=== PATIENT | male | born 1950 | race Caucasian/White ===

== ENCOUNTER → 2016-08-10 | Outpatient (CLI) | payer MEDICARE, OTHER ==
[2016-08-10 17:12] LABS: ALANINE AMINOTRANSFERASE 38 U/L (21-72); ALBUMIN 4.4 g/dL (3.5-5.0); ALKALINE PHOSPHATASE 85 U/L (38-126); ASPARTATE AMINO TRANSFERASE 33 U/L (17-59); BILIRUBIN,DIRECT 0.4 mg/dL (0.0-0.4); BILIRUBIN,TOTAL 1.2 mg/dL (0.2-1.3); CHOLESTEROL 165.29 mg/dL (0-200); Direct HDL 93 mg/dL (>40); TOTAL PROTEIN 7.4 g/dL (6.3-8.2); TRIGLYCERIDES 66 mg/dL (<150)
[2016-08-10 17:23] LABS: DIRECT LDL 54 mg/dL (<100)
== END ==
LOC: OD 15:06
PROVIDERS: ATTEND Specialist
DX: E78.5 Hyperlipidemia, unspecified (principal); I12.9 Hypertensive chronic kidney disease with stage 1 through stage 4 chronic kidney disease, or unspecified chronic kidney disease; N18.9 Chronic kidney disease, unspecified; I48.0 Paroxysmal atrial fibrillation; R01.1 Cardiac murmur, unspecified; Z79.899 Other long term (current) drug therapy
CPT/HCPCS: 36415; 80061; 80076

== ENCOUNTER 2016-09-09 07:23 | Day surgery (SDC) | payer MEDICARE, OTHER ==
--- NOTE | 2016-09-08 13:31 | HISTORY AND PHYSICAL E ---
History and Physical NAME: KAUSHIK ACE : 1950 AGE: 66Y ADMITTED: 09/09/2016 ROOM: REASON FOR ADMISSION: Colonoscopy. DIAGNOSIS: History of colon polyps. REVIEW OF SYSTEMS: Patient has a history of enlarged prostate, history of diverticulosis and diverticulitis. PRIMARY: Dr. Andres Nunez MEDICATIONS: 1. Uloric 40 mg. 2. Prilosec. 3. Fosamax. 4. Diovan. 5. Norvasc. 6. Norpace. 7. Lipitor. 8. Lasix. 9. Flomax. PHYSICAL EXAMINATION: VITAL SIGNS: Blood pressure is 130/70, pulse 70, respirations 18, temp 98. HEENT: Normal. NECK: Supple. LUNGS: Clear. ABDOMEN: Soft. NEUROLOGIC: Negative. LABORATORY DATA: Prostatic specific antigen 2.1. HISTORY: Patient is admitted at this time regarding colonoscopy. I saw the patient in 2014. He had colonoscopy showing colorectal polyps. They was a sessile 1-mm polyp in transverse colon resected and another sessile polyp in proximal ascending 0.5 cm, injected and resected. Again, the patient did have diverticulosis in descending colon, sessile polyp 1 cm injected and resected, a sessile polyp difficult to be resected, injected and resected. We were able to resect it with no difficulty and no sign of it bleeding. These polyps were adenomas. SOCIAL HISTORY: . Does not smoke. Drinks rarely. PAST MEDICAL HISTORY: Patient did have upper scope, reflux. Patient has a history of polyps. Patient was seen on October 14. He takes Diovan for hypertension. CONCLUSIONS: Colon exam. PLAN: Colonoscopy for history of polyps, admit on 09/09/2016. DICTATING PHYSICIAN: ALONA ADAM M.D. [id number] PHY#: [id number] ID: [id number] JOB#: [id number] ACCT: [id number] cc:ALONA ADAM M.D. >
[2016-09-09] MEDS ORDERED: ONDANSETRON HCL INJ/PF 4 MG/2 ML SDV ONE (07:41)
[2016-09-09] MEDS ORDERED: LIDOCAINE 2% JELLY 30 ML TUBE ONE (07:41)
[2016-09-09] MEDS ORDERED: NALOXONE HCL INJ/PF 0.4 MG/1 ML SDV ONE (07:42)
[2016-09-09] MEDS ORDERED: GLYCOPYRROLATE INJ 0.4 MG/2 ML VIAL ONE (07:42)
[2016-09-09] MEDS ORDERED: EPINEPHRINE INJ 1 MG/10 ML DISP.SYRIN ONE (07:43)
[2016-09-09] MEDS ORDERED: GLUCAGON,HUMAN RECOMB 1 MG INJ ONE (07:43)
[2016-09-09] MEDS ORDERED: FLUMAZENIL INJ 0.5 MG/5 ML VIAL IV ONE (07:43)
[2016-09-09] MEDS: MIDAZOLAM 2 MG/2 ML INJ ONE ×2 (08:10→08:18)
[2016-09-09] MEDS: FENTANYL CITRATE INJ/PF 100 MCG/2 ML AMPUL ONE ×2 (08:14→08:25)
[2016-09-09 09:36] VITALS: BP 112/69
--- NOTE | 2016-09-09 10:08 | OPERATIVE REPORT E ---
Operative Report NAME: KAUSHIK ACE : 1950 AGE: 66Y DATE OF SURGERY: 09/09/2016 ROOM: PREOPERATIVE DIAGNOSIS: Colon screening. POSTOPERATIVE DIAGNOSES: 1. A 3 mm descending colon polyp. Biopsy obtained. 2. Severe diverticulosis sigmoid descending colon. 3. Mild external hemorrhoid. PROCEDURE: Colonoscopy. SURGEON: ALONA ADAM M.D. ANESTHESIA: Versed 2, fentanyl 100, and . TISSUE REMOVED OR ALTERED: Biopsy descending colon polyp. Biopsy almost removed the polyp, 3 mm in size. Benign looking. Pending biopsy. PROCEDURE: Rectal exam: Enlarged prostate. Mild external hemorrhoids. Sigmoid descending colon diverticulosis, severe. Descending colon: A 3 mm polyp removed by biopsy. Transverse colon normal. Ascending cecum normal. Scope withdrawn from cecum, ascending, transverse, descending, sigmoid all the way to the rectum. CONCLUSION: 1. Severe diverticulosis sigmoid descending colon. 2. Small 3 mm polyp removed by biopsy. PLAN: Hold aspirin and nonsteroidal 3 days. Soft low residue diet 3 days. Awaiting biopsy results. Baseline CBC. DICTATING PHYSICIAN: ALONA ADAM M.D. [id number] PHY#: [id number] ID: [id number] JOB#: [id number] ACCT: [id number] cc:Adryan BALL M.D. >
--- NOTE | 2016-09-09 10:09 | DISCHARGE SUMMARY E ---
Discharge Summary NAME: KAUSHIK ACE : 1950 AGE: 66Y ADMITTED: 09/09/2016 DISCHARGED: 09/09/2016 FINAL DIAGNOSES: 1. A 3-mm polyp at descending colon. 2. Sigmoid diverticulosis. HISTORY: This 66-year-old male presented for colon screening. Today's colon shows benign-looking polyp, 3 mm, descending colon. DISCHARGE PLAN: Baseline CBC, soft low-residue diet for 5 days, hold aspirin for 3 days. DICTATING PHYSICIAN: ALONA ADAM M.D. [id number] PHY#: [id number] ID: [id number] JOB#: [id number] ACCT: [id number] cc:Adryan BALL M.D. >
[2016-09-09 10:19] LABS: ABSOLUTE BASOPHILS # (AUTO) 0.1 10^3/uL (0.0-0.2); ABSOLUTE EOSINOPHILS # (AUTO) 0.2 10^3/uL (0.0-0.6); ABSOLUTE LYMPHOCYTES (AUTO) 1.1 10^3/uL (0.5-4.7); ABSOLUTE MONOCYTES (AUTO) 0.3 10^3/uL (0.1-1.4); ABSOLUTE NEUT (AUTO) 4.5 10^3/uL (1.7-8.2); BASOPHILS % (AUTO) 0.8 % (0-2); EOSINOPHILS % (AUTO) 2.8 % (0-6); HEMATOCRIT 39.5 % (37.9-51.0); HEMOGLOBIN 13.3 g/dL (13.5-17.0); HGB HCT DIFFERENCE 0.4; LYMPHOCYTES % (AUTO) 17.6 % (13-45); MEAN CORPUSCULAR HEMOGLOBIN 33.8 pg (27.0-33.4); MEAN CORPUSCULAR HGB CONC 33.7 g/dL (32.0-36.0); MEAN CORPUSCULAR VOLUME 100 fl (80-97); MONOCYTES % (AUTO) 5.6 % (3-13); RED BLOOD COUNT 3.94 10^6/uL (4.35-5.55); RED CELL DISTRIBUTION WIDTH 13.8 % (11.5-14.0); SEGMENTED NEUTROPHILS % (AUTO) 73.2 % (42-78); WHITE BLOOD COUNT 6.1 10^3/uL (4.0-10.5)
== END 2016-09-09 09:57 | disposition home or self-care (01) ==
LOC: END 07:23
PROVIDERS: ATTEND Specialist
PROC: 0DBN8ZX Excision of Sigmoid Colon, Via Natural or Artificial Opening Endoscopic, Diagnostic (ICD-10-PCS; principal; 2016-09-09 08:00)
DX: Z12.11 Encounter for screening for malignant neoplasm of colon (principal); K57.30 Diverticulosis of large intestine without perforation or abscess without bleeding; K64.4 Residual hemorrhoidal skin tags; I48.91 Unspecified atrial fibrillation; I10 Essential (primary) hypertension; K21.9 Gastro-esophageal reflux disease without esophagitis; Z88.8 Allergy status to other drugs, medicaments and biological substances; Z79.899 Other long term (current) drug therapy; Z88.5 Allergy status to narcotic agent
CPT/HCPCS: 45380; 36415; 85025; 88305 ×2; J2250; J3010; J1610; J2405; J0171; J2310; J3490

== ENCOUNTER → 2016-11-18 | Outpatient (CLI) | payer MEDICARE, OTHER ==
[2016-11-18 13:15] LABS: ANION GAP 12 (5-19); BLOOD UREA NITROGEN 21 mg/dL (7-20); CALCIUM 9.4 mg/dL (8.4-10.2); CARBON DIOXIDE 29 mmol/L (22-30); CHLORIDE 105 mmol/L (98-107); CREATININE RESULT 1.11 mg/dL (0.52-1.25); GLUCOSE 88 mg/dL (75-110); POTASSIUM 3.9 mmol/L (3.6-5.0); SODIUM 145.5 mmol/L (137-145)
== END ==
LOC: OD 11:51
PROVIDERS: ATTEND Internal Medicine
DX: I48.0 Paroxysmal atrial fibrillation (principal); R01.1 Cardiac murmur, unspecified; E78.5 Hyperlipidemia, unspecified; I12.9 Hypertensive chronic kidney disease with stage 1 through stage 4 chronic kidney disease, or unspecified chronic kidney disease; N18.9 Chronic kidney disease, unspecified; Z79.899 Other long term (current) drug therapy
CPT/HCPCS: 36415; 80048

== ENCOUNTER → 2017-03-12 | Outpatient (CLI) | payer MEDICARE, OTHER ==
[2017-03-12 12:16] LABS: ABSOLUTE BASOPHILS # (AUTO) 0.1 10^3/uL (0.0-0.2); ABSOLUTE EOSINOPHILS # (AUTO) 0.2 10^3/uL (0.0-0.6); ABSOLUTE LYMPHOCYTES (AUTO) 1.2 10^3/uL (0.5-4.7); ABSOLUTE MONOCYTES (AUTO) 0.3 10^3/uL (0.1-1.4); ABSOLUTE NEUT (AUTO) 2.9 10^3/uL (1.7-8.2); BASOPHILS % (AUTO) 1.1 % (0-2); EOSINOPHILS % (AUTO) 4.1 % (0-6); HEMATOCRIT 41.9 % (37.9-51.0); HEMOGLOBIN 14.5 g/dL (13.5-17.0); LYMPHOCYTES % (AUTO) 25.9 % (13-45); MEAN CORPUSCULAR HEMOGLOBIN 34.3 pg (27.0-33.4); MEAN CORPUSCULAR HGB CONC 34.5 g/dL (32.0-36.0); MEAN CORPUSCULAR VOLUME 99 fl (80-97); MONOCYTES % (AUTO) 6.5 % (3-13); PLATELET COUNT 157 10^3/uL (150-450); RED BLOOD COUNT 4.21 10^6/uL (4.35-5.55); RED CELL DISTRIBUTION WIDTH 13.7 % (11.5-14.0); SEGMENTED NEUTROPHILS % (AUTO) 62.4 % (42-78); TOTAL CELLS COUNTED % (AUTO) 100 %; WHITE BLOOD COUNT 4.7 10^3/uL (4.0-10.5)
[2017-03-12 12:40] LABS: ANION GAP 11 (5-19); BLOOD UREA NITROGEN 16 mg/dL (7-20); CARBON DIOXIDE 29 mmol/L (22-30); CHLORIDE 104 mmol/L (98-107); GLUCOSE 75 mg/dL (75-110); POTASSIUM 4.1 mmol/L (3.6-5.0)
[2017-03-15 09:01] LABS: CREATININE 1.2 mg/dL (0.52-1.25)
[2017-03-15 09:02] LABS: 24 HOUR URINE PROTEIN RESULT 832 mg/day (42-225); URINE PROTEIN 14.1 mg/dL (<12)
[2017-03-15 09:03] LABS: URINE CREATININE 19.9 mg/dL (22-328)
== END ==
LOC: LAB 11:57
PROVIDERS: ATTEND Internal Medicine Nephrology
DX: N18.2 Chronic kidney disease, stage 2 (mild) (principal); N28.1 Cyst of kidney, acquired
CPT/HCPCS: 36415; 80048; 82575; 84156; 85025

== ENCOUNTER → 2017-06-08 | Outpatient (CLI) | payer MEDICARE, OTHER ==
[2017-06-08 12:51] LABS: ALANINE AMINOTRANSFERASE 41 U/L (21-72); ALBUMIN 4.1 g/dL (3.5-5.0); ALKALINE PHOSPHATASE 78 U/L (38-126); ASPARTATE AMINO TRANSFERASE 34 U/L (17-59); BILIRUBIN,DIRECT 0.2 mg/dL (0.0-0.4); BILIRUBIN,TOTAL 0.8 mg/dL (0.2-1.3); CHOLESTEROL 152.32 mg/dL (0-200); TOTAL PROTEIN 6.4 g/dL (6.3-8.2); TRIGLYCERIDES 71 mg/dL (<150)
[2017-06-08 13:02] LABS: DIRECT LDL 59 mg/dL (<100)
== END ==
LOC: OD 11:16
PROVIDERS: ATTEND Specialist
DX: I48.0 Paroxysmal atrial fibrillation (principal); R01.1 Cardiac murmur, unspecified; I12.9 Hypertensive chronic kidney disease with stage 1 through stage 4 chronic kidney disease, or unspecified chronic kidney disease; N18.9 Chronic kidney disease, unspecified; E78.5 Hyperlipidemia, unspecified; Z79.899 Other long term (current) drug therapy
CPT/HCPCS: 36415; 80061; 80076

== ENCOUNTER → 2017-09-10 | Outpatient (CLI) | payer MEDICARE, OTHER ==
[2017-09-10 15:56] LABS: ANION GAP 12 (5-19); BLOOD UREA NITROGEN 27 mg/dL (7-20); CALCIUM 9.4 mg/dL (8.4-10.2); CARBON DIOXIDE 28 mmol/L (22-30); CHLORIDE 103 mmol/L (98-107); GLUCOSE 97 mg/dL (75-110); POTASSIUM 3.9 mmol/L (3.6-5.0); SODIUM 142.6 mmol/L (137-145)
[2017-09-11 12:38] LABS: CREATININE URINE 14.4 mg/dL (Not Estab.)
[2017-09-12 06:15] LABS: MICROALBUMIN URINE <3.0 ug/mL (Not Estab.)
== END ==
LOC: OD 15:01
PROVIDERS: ATTEND Internal Medicine Nephrology
DX: N18.2 Chronic kidney disease, stage 2 (mild) (principal); R80.9 Proteinuria, unspecified
CPT/HCPCS: 36415; 80048; 82043; 82570

== ENCOUNTER → 2018-01-10 | Outpatient (CLI) | payer MEDICARE, OTHER ==
[2018-01-10 14:39] LABS: ALANINE AMINOTRANSFERASE 34 U/L (21-72); ALKALINE PHOSPHATASE 84 U/L (38-126); ASPARTATE AMINO TRANSFERASE 39 U/L (17-59); BILIRUBIN,DIRECT 0.3 mg/dL (0.0-0.4); CHOLESTEROL 138.15 mg/dL (0-200); TOTAL PROTEIN 6.4 g/dL (6.3-8.2); TRIGLYCERIDES 61 mg/dL (<150)
[2018-01-10 14:50] LABS: DIRECT LDL 62 mg/dL (<100)
== END ==
LOC: OD 13:38
PROVIDERS: ATTEND Specialist
DX: I12.9 Hypertensive chronic kidney disease with stage 1 through stage 4 chronic kidney disease, or unspecified chronic kidney disease (principal); N18.9 Chronic kidney disease, unspecified; I48.0 Paroxysmal atrial fibrillation; R01.1 Cardiac murmur, unspecified; E78.5 Hyperlipidemia, unspecified; Z79.899 Other long term (current) drug therapy
CPT/HCPCS: 36415; 80061; 80076

== ENCOUNTER → 2018-03-21 | Outpatient (CLI) | payer MEDICARE, OTHER ==
[2018-03-21 08:29] LABS: ANION GAP 6 (5-19); BLOOD UREA NITROGEN 22 mg/dL (7-20); CALCIUM 9.5 mg/dL (8.4-10.2); CARBON DIOXIDE 30 mmol/L (22-30); CHLORIDE 104 mmol/L (98-107); GLUCOSE 102 mg/dL (75-110); POTASSIUM 3.8 mmol/L (3.6-5.0); SODIUM 140.2 mmol/L (137-145)
[2018-03-21 11:01] LABS: APPEARANCE,URINE CLEAR; BILIRUBIN,URINE NEGATIVE (NEGATIVE); COLOR,URINE YELLOW; GLUCOSE, URINE NEGATIVE (NEGATIVE); KETONES,URINE NEGATIVE (NEGATIVE); LEUKOCYTE ESTERASE,URINE NEGATIVE (NEGATIVE); NITRITE,URINE NEGATIVE (NEGATIVE); PROTEIN,URINE NEGATIVE (NEGATIVE); URINE SPECIFIC GRAVITY 1.014; UROBILINOGEN,URINE NEGATIVE mg/dL (<2.0)
[2018-03-22 12:38] LABS: CREATININE URINE 161.4 mg/dL (Not Estab.); MICROALBUMIN URINE 7.8 ug/mL (Not Estab.)
== END ==
LOC: OD 07:12
PROVIDERS: ATTEND Internal Medicine Nephrology
DX: I12.9 Hypertensive chronic kidney disease with stage 1 through stage 4 chronic kidney disease, or unspecified chronic kidney disease (principal); N18.2 Chronic kidney disease, stage 2 (mild)
CPT/HCPCS: 36415; 80048; 81001; 82043; 82570

== ENCOUNTER 2018-11-23 06:18 | Observation (INO) | payer MEDICARE, OTHER ==
[2018-11-23] MEDS ORDERED: ONDANSETRON HCL INJ/PF 4 MG/2 ML SDV IV ONE (07:53)
[2018-11-23] MEDS ORDERED: MORPHINE SULFATE 10 MG/ML INJ IV ONE ×2 (07:53→09:46)
--- NOTE | 2018-11-23 08:06 | ER Document Report ---
ED General <IZAIAH MARIE - Last Filed: 11/23/18 12:14> - General TRAVEL OUTSIDE OF THE [place] IN LAST 30 DAYS: No <HERMINIO ARELLANO - Last Filed: 11/25/18 15:25> - General Chief Complaint: Groin Pain Stated Complaint: PAIN IN GROIN Time Seen by Provider: 11/23/18 07:40 - HPI Notes: Patient is a 68-year-old male who presents the emergency department for evaluation of pain in his right lower abdomen/inguinal area. He states he was walking on a treadmill yesterday. He walks 5 days a week. He states he left, got into his car, and had onset of pain at that time. It was not during activity. He saw his primary care doctor, who diagnosed him with an inguinal strain. He was started on Ultram which he states is not helping at all. He denies any fevers or chills. He said some nausea but no emesis. Pain is not changed by food. He did have a normal bowel movement yesterday after pain started. No urinary symptoms. He describes his pain is sharp and stabbing, worsened by position and movement. He currently rates it a 9 out of 10. (HERMINIO ARELLANO) - Related Data Allergies/Adverse Reactions: prednisone [Prednisone] Allergy (Intermediate, Verified 09/09/16 07:38) upsets heart rate(put into a-fib) codeine [Codeine] Adverse Reaction (Mild, Verified 09/09/16 07:38) n/v Past Medical History - General Information source: Patient - Social History Smoking Status: Never Smoker Chew tobacco use (# tins/day): No Frequency of alcohol use: None Drug Abuse: None Family History: Reviewed & Not Pertinent Patient has suicidal ideation: No Patient has homicidal ideation: No - Past Medical History Cardiac Medical History: Reports: Hx Atrial Fibrillation, Hx Hypercholesterolemia, Hx Hypertension Denies: Hx Coronary Artery Disease, Hx Heart Attack Pulmonary Medical History: Denies: Hx Asthma, Hx Bronchitis, Hx COPD, Hx Pneumonia Neurological Medical History: Denies: Hx Cerebrovascular Accident, Hx Seizures GI Medical History: Reports: Hx Gastroesophageal Reflux Disease Musculoskeletal Medical History: Denies Hx Arthritis - Immunizations Hx Diphtheria, Pertussis, Tetanus Vaccination: No Hx Pneumococcal Vaccination: 03/01/12 <HERMINIO ARELLANO - Last Filed: 11/25/18 15:25> Review of Systems - Review of Systems Constitutional: No symptoms reported EENT: No symptoms reported Cardiovascular: No symptoms reported Respiratory: No symptoms reported Gastrointestinal: See HPI Genitourinary: No symptoms reported Musculoskeletal: See HPI Skin: No symptoms reported Neurological/Psychological: No symptoms reported <HERMINIO ARELLANO - Last Filed: 11/25/18 15:25> Physical Exam <HERMINIO ARELLANO Yen - Last Filed: 11/25/18 15:25> - Vital signs Vitals: Temp Pulse Resp BP Pulse Ox 98.7 F 80 24 H 127/83 H 98 11/23/18 06:25 11/23/18 06:25 11/23/18 06:25 11/23/18 06:25 11/23/18 06:25 - Notes Notes: Is a 68-year-old gentleman who appears his stated age in a moderate amount of distress. He is curled up on his right side. It takes him yearly four full minutes to have him turn and lie on his back to complete my examination. Vital signs reviewed, please refer to chart. Head is normocephalic, atraumatic. Pupils equal round, reactive to light. Neck is supple without meningismus. Heart is regular rate and rhythm. Lungs are clear to auscultation bilaterally. Examination of the abdomen yields erythema from heating pad noted on the lower abdomen. He is markedly tender with voluntary guarding to the entire right side of the abdomen. No tenderness or guarding on the left side of the abdomen. Negative heeltap. Normoactive bowel sounds. Extremities without cyanosis, clubbing. Posterior calves are nontender. Peripheral pulses are equal. Skin is warm and dry. Patient is awake, alert, neurological exam is nonfocal. (HERMINIO ARELLANO) Course - Laboratory Result Diagrams: 11/23/18 08:22 11/23/18 08:22 <IZAIAH MARIE - Last Filed: 11/23/18 12:14> - Laboratory Result Diagrams: 11/25/18 11:52 11/23/18 08:22 <HERMINIO ARELLANO - Last Filed: 11/25/18 15:25> - Re-evaluation Re-evalutation: 11/23/18 12:14 I assumed care of the patient at [address] scan returns showing signs of appendicitis. I consulted the general surgeon who has seen the patient and is going to take the patient to the operating room for treatment of appendicitis. (IZAIAH MARIE) 11/23/18 11:04 Emerge department for evaluation. He has pain in his right inguinal and lower abdominal region that seems to be more affected by movement than anything else. He is pain-free after morphine and Toradol. CT scan of the abdomen and pelvis is pending, ordered simply because of the level of tenderness, but serial abdominal exams failed to reveal this level of tenderness. I do not have a significant concern for intra-abdominal etiology at this time. I will then send the patient home with prescription strength anti-inflammatories as well as stronger pain medication. He is to follow-up with his primary care physician in 1 to 2 days, return to the ED with worsening or new concerning symptoms. 11/25/18 15:24 I was notified later that the CT scan showed appendicitis, as followed up by Dr. Marie. He notified surgery, and the patient was admitted for appendectomy. Prescriptions not given, patient admitted. (HERMINIO ARELLANO) - Vital Signs Vital signs: Temp Pulse Resp BP Pulse Ox 98.2 F 62 16 136/71 H 97 11/25/18 12:21 11/25/18 12:21 11/25/18 12:21 11/25/18 12:21 11/25/18 12:21 - Laboratory Laboratory results interpreted by me: 11/23/18 11/23/18 11/23/18 08:22 08:22 09:48 RBC 4.19 L MCV 98 H MCH 34.1 H Plt Count 124 L Lymph % (Auto) 5.2 L Absolute Lymphs (auto) 0.3 L Seg Neutrophils % 89.1 H Sodium 136.6 L Total Bilirubin 1.8 H Urine Ketones 20 H Discharge - Discharge Admitting Provider[facility] Unit Admitted: Surgical Floor <IZAIAH MARIE - Last Filed: 11/23/18 12:14> <HERMINIO ARELLANO - Last Filed: 11/25/18 15:25> - Discharge Clinical Impression: Appendicitis Qualifiers: Appendicitis type: acute appendicitis Acute appendicitis type: with localized peritonitis Appendicitis gangrene presence: without gangrene Appendicitis perfor ation presence: without perforation Appendicitis abscess presence: without abscess Qualified Code(s): K35.30 - Acute appendicitis with localized peritonitis, without perforation or gangrene Condition: Stable Disposition: ADMITTED INPATIENT
[2018-11-23] MEDS ORDERED: NORMAL SALINE 1000 ML 1,000 ML IV ONE (08:21)
[2018-11-23 08:51] LABS: ABSOLUTE LYMPHOCYTES (AUTO) 0.3 10^3/uL (0.5-4.7); ABSOLUTE MONOCYTES (AUTO) 0.3 10^3/uL (0.1-1.4); ABSOLUTE NEUT (AUTO) 5.2 10^3/uL (1.7-8.2); BASOPHILS % (AUTO) 0.1 % (0-2); EOSINOPHILS % (AUTO) 0.2 % (0-6); HEMATOCRIT 40.9 % (37.9-51.0); HEMOGLOBIN 14.3 g/dL (13.5-17.0); LYMPHOCYTES % (AUTO) 5.2 % (13-45); MEAN CORPUSCULAR HEMOGLOBIN 34.1 pg (27.0-33.4); MEAN CORPUSCULAR HGB CONC 34.9 g/dL (32.0-36.0); MEAN CORPUSCULAR VOLUME 98 fl (80-97); MONOCYTES % (AUTO) 5.4 % (3-13); PLATELET COUNT 124 10^3/uL (150-450); RED BLOOD COUNT 4.19 10^6/uL (4.35-5.55); RED CELL DISTRIBUTION WIDTH 13.3 % (11.5-14.0); SEGMENTED NEUTROPHILS % (AUTO) 89.1 % (42-78); TOTAL CELLS COUNTED % (AUTO) 100 %; WHITE BLOOD COUNT 5.8 10^3/uL (4.0-10.5)
[2018-11-23 08:53] LABS: ALBUMIN 4.1 g/dL (3.5-5.0); ALKALINE PHOSPHATASE 69 U/L (38-126); ANION GAP 9 (5-19); ASPARTATE AMINO TRANSFERASE 36 U/L (17-59); BILIRUBIN,DIRECT 0.2 mg/dL (0.0-0.4); BILIRUBIN,TOTAL 1.8 mg/dL (0.2-1.3); BLOOD UREA NITROGEN 19 mg/dL (7-20); CALCIUM 9.5 mg/dL (8.4-10.2); CARBON DIOXIDE 27 mmol/L (22-30); CHLORIDE 101 mmol/L (98-107); GLUCOSE 110 mg/dL (75-110); POTASSIUM 4.1 mmol/L (3.6-5.0); TOTAL PROTEIN 6.9 g/dL (6.3-8.2)
[2018-11-23] MEDS ORDERED: SUCCINYLCHOLINE CHLORIDE INJ 200 MG/10 ML VIAL ONE (09:17)
[2018-11-23] MEDS ORDERED: KETOROLAC TROMETHAMINE INJ/PF 30 MG/1 ML SDV IV ONE (09:46)
[2018-11-23 10:08] LABS: APPEARANCE,URINE CLEAR; BILIRUBIN,URINE NEGATIVE (NEGATIVE); COLOR,URINE YELLOW; GLUCOSE, URINE NEGATIVE (NEGATIVE); KETONES,URINE 20 mg/dL (NEGATIVE); LEUKOCYTE ESTERASE,URINE NEGATIVE (NEGATIVE); NITRITE,URINE NEGATIVE (NEGATIVE); PROTEIN,URINE NEGATIVE (NEGATIVE); URINE SPECIFIC GRAVITY 1.014; UROBILINOGEN,URINE NEGATIVE mg/dL (<2.0)
--- NOTE | 2018-11-23 11:49 | RADIOLOGY REPORT (SQ) ---
EXAM DESCRIPTION: CT ABD/PELVIS WITH IV ONLY COMPLETED DATE/TIME: 11/23/2018 10:46 am REASON FOR STUDY: Right lower abdominal pain COMPARISON: None. TECHNIQUE: CT scan of the abdomen and pelvis performed using helical scanning technique with dynamic intravenous contrast injection. No oral contrast. Images reviewed with lung, soft tissue, and bone windows. Reconstructed coronal and sagittal MPR images reviewed. Delayed images for evaluation of the urinary system also acquired. All images stored on PACS. All CT scanners at this facility use dose modulation, iterative reconstruction, and/or weight based d osing when appropriate to reduce radiation dose to as low as reasonably achievable (ALARA). [facility]: Dose Right [facility]: CareDose [facility]: Dose Right [facility]: Teradose 4D [facility]: [employer] CONTRAST TYPE AND DOSE: contrast/concentration: Isovue 350.00 mg/ml; Total Contrast Delivered: 100.0 ml; Total Saline Delivered: 72.0 ml RENAL FUNCTION: Creatinine 1.16 RADIATION DOSE: CT Rad equipment meets quality standard of care and radiation dose reduction techniq ues were employed. CTDIvol: 17.4 - 19.4 mGy. DLP: 1969 mGy-cm.. LIMITATIONS: None. FINDINGS: LOWER CHEST: Mild irregular consolidation within the right lung base. Scattered coronary atherosclerosis. LIVER: Hepatic steatosis. No focal lesions. SPLEEN: Normal size. No focal lesions. PANCREAS: Fatty atrophy of the pancreas. Focal solid appearing mass within the pancreatic tail measu ring approximately 3.0 x 2.0 cm. No peripancreatic inflammation. No ductal dilation. GALLBLADDER: No identified stones by CT criteria. No inflammatory changes to suggest cholecystitis. ADRENAL GLANDS: No significant masses or asymmetry. RIGHT KIDNEY AND URETER: Multiple renal cyst. No definite solid masses. No significant calcificati ons. No hydronephrosis or hydroureter. LEFT KIDNEY AND URETER: No solid masses. No significant calcifications. No hydronephrosis or hydr oureter. AORTA AND VESSELS: No aneurysm. No dissection. Renal arteries, SMA, celiac without stenosis. RETROPERITONEUM: No retroperitoneal adenopathy, hemorrhage or masses. BOWEL AND PERITONEAL CAVITY: No evidence of intestinal obstruction. No focal bowel wall thickening. Few scattered colonic diverticula. There is small volume fluid and stranding about the cecum. APPENDIX: Dilation of the proximal appendix measuring up to 10 mm. The appendiceal tip is nondilated . No appendicolith. Mild stranding about the appendix and pericecal free fluid. No focal drainable collection. PELVIS: No mass. No free fluid. Normal bladder. ABDOMINAL WALL: Left fat containing inguinal hernia. BONES: No acute bony abnormality. No suspicious osseous lesions. IMPRESSION: 1. Dilated proximal appendix measuring up to 10 mm with periappendiceal stranding sugge stive of appendicitis. Small volume pericecal fluid without focal drainable abscess. 2. 3.0 x 2.0 cm solid pancreatic tail mass. 3. Patchy with right basilar consolidation possibly atelectasis or infection. 4. . Hepatic steatosis. Pertinent positive or negative findings of the imaging study reported as a CRITICAL EXAM to Frank at11:37 on 11/23/2018. TECHNICAL DOCUMENTATION: JOB ID: [id number] Quality ID # [id number]: Final reports with documentation of one or more dose reduction techniques (e.g., Au tomated exposure control, adjustment of the mA and/or kV according to patient size, use of iterative reconstruction technique) 2010 [employer]- All Rights Reserved Reading location - IP/workstation name: [email or web address]
[2018-11-23] MEDS ORDERED: MORPHINE SULFATE 10 MG/ML INJ IV PRN ×2 (12:21→14:40)
[2018-11-23] MEDS ORDERED: PIPERACILLIN/TAZOBACTAM 3.375 GM VIAL IV ONE (12:23)
[2018-11-23] MEDS: NORMAL SALINE 1000 ML 1,000 ML IV PRN (13:10)
--- NOTE | 2018-11-23 13:47 | PDOC H&P ---
History of Present Illness Admission Date/PCP: 11/23/18 12:54 CRISTINA GRIJALVA MD Patient complains of: RLQ pain History of Present Illness: KAUSHIK ACE is a 68 year old male with a 12-18 hour history of right lower quadrant pain. Patient reports feeling a tightness in his right lower quadrant, that progressed to dmitri pain. It is sharp and stabbing. The pain has extended around his right flank and to his midline. The patient reports that the pain is worse with movement, stretching, and palpation. He rates his pain as 9 out of 10. He denies any fevers, chills, nausea, or vomiting. He denies any melena, hematochezia, diarrhea, or constipation. He has never had pain like this before. The patient has a long medical history, significant for heart disease, atrial fibrillation, and a previous right inguinal hernia repair. Currently the patient denies chest pain, shortness of breath, headache, blurry vision, orthostasis, malaise, or fatigue. Past Medical History Cardiac Medical History: Reports: Atrial Fibrillation, Hyperlipidema, Hypertension Denies: Coronary Artery Disease, Myocardial Infarction Pulmonary Medical History: Denies: Asthma, Bronchitis, Chronic Obstructive Pulmonary Disease (COPD), Pneumonia Neurological Medical History: Denies: Seizures GI Medical History: Reports: Gastroesophageal Reflux Disease Musculoskeltal Medical History: Denies: Arthritis Hematology: Denies: Anemia Past Surgical History Past Surgical History: Reports: Other - Laparoscopic right inguinal hernia in [place] in 2016 Social History Information Source: Patient Smoking Status: Never Smoker Hx Recreational Drug Use: No Hx Prescription Drug Abuse: No - Advance Directive Resuscitation Status: Full Code Family History Family History: Reviewed & Not Pertinent Parental Family History Reviewed: Yes Children Family History Reviewed: Yes Sibling(s) Family History Reviewed.: Yes Medication/Allergy Allergies/Adverse Reactions: prednisone [Prednisone] Allergy (Intermediate, Verified 09/09/16 07:38) upsets heart rate(put into a-fib) codeine [Codeine] Adverse Reaction (Mild, Verified 09/09/16 07:38) n/v Review of Systems Constitutional: ABSENT: anorexia, chills, fatigue, fever(s), headache(s), night sweats Eyes: ABSENT: visual disturbances Ears: ABSENT: hearing changes Nose, Mouth, and Throat: ABSENT: sore throat Cardiovascular: ABSENT: chest pain Respiratory: ABSENT: cough, dyspnea Gastrointestinal: PRESENT: abdominal pain. ABSENT: constipation, diarrhea, melena, nausea, vomiting Genitourinary: ABSENT: dysuria Musculoskeletal: PRESENT: back pain Integumentary: ABSENT: pruritus, rash Neurological: ABSENT: confusion, convulsions, dizziness, weakness Psychiatric: ABSENT: anxiety, depression Endocrine: ABSENT: cold intolerance, heat intolerance Hematologic/Lymphatic: ABSENT: easy bleeding, easy bruising Physical Exam Vital Signs: Temp Pulse Resp BP Pulse Ox 100.0 F 68 16 128/78 H 99 11/23/18 13:25 11/23/18 13:25 11/23/18 13:25 11/23/18 13:25 11/23/18 13:25 Intake & Output 11/22/18 11/23/18 11/24/18 06:59 06:59 06:59 Intake Total 1000 Balance 1000 Weight 92.9 kg General appearance: PRESENT: no acute distress, cooperative Head exam: PRESENT: atraumatic, normocephalic Eye exam: PRESENT: EOMI, PERRLA. ABSENT: scleral icterus Mouth exam: PRESENT: moist, neck supple Teeth exam: ABSENT: poor dentation Neck exam: ABSENT: tenderness, thyromegaly, tracheal deviation Respiratory exam: PRESENT: clear to auscultation angelo, symmetrical, unlabored. ABSENT: chest wall tenderness, tachypnea, wheezes Cardiovascular exam: PRESENT: irregular rhythm Pulses: PRESENT: normal radial pulses Vascular exam: PRESENT: normal capillary refill. ABSENT: pallor GI/Abdominal exam: PRESENT: guarding - RLQ, soft, tenderness - RLQ. ABSENT: distended Rectal exam: PRESENT: deferred Extremities exam: ABSENT: clubbing Musculoskeletal exam: ABSENT: deformity Neurological exam: PRESENT: alert, awake, oriented to person, oriented to place, oriented to time, oriented to situation, CN II-XII grossly intact Psychiatric exam: ABSENT: agitated, anxious, depressed Focused psych exam: ABSENT: delusional Skin exam: ABSENT: cyanosis, erythema, jaundice Results Laboratory Results: 11/23/18 08:22 11/23/18 08:22 11/23/18 11/23/18 11/23/18 08:22 08:22 09:48 WBC 5.8 RBC 4.19 L Hgb 14.3 Hct 40.9 MCV 98 H MCH 34.1 H MCHC 34.9 RDW 13.3 Plt Count 124 L Seg Neutrophils % 89.1 H Sodium 136.6 L Potassium 4.1 Chloride 101 Carbon Dioxide 27 Anion Gap 9 BUN 19 Creatinine 1.16 Est GFR ( Amer) > 60 Glucose 110 Calcium 9.5 Total Bilirubin 1.8 H AST 36 Alkaline Phosphatase 69 Total Protein 6.9 Albumin 4.1 Lipase 37.5 Urine Color YELLOW Urine Appearance CLEAR Urine pH 8.0 Ur Specific [place] 1.014 Urine Protein NEGATIVE Urine Glucose (UA) NEGATIVE Urine Ketones 20 H Urine Blood NEGATIVE Urine Nitrite NEGATIVE Ur Leukocyte Esterase NEGATIVE Urine WBC (Auto) 0 Urine RBC (Auto) 0 Impressions: Abdomen/Pelvis CT 11/23/18 10:10 IMPRESSION: 1. Dilated proximal appendix measuring up to 10 mm with periappendiceal stranding suggestive of appendicitis. Small volume pericecal fluid without focal drainable abscess. 2. 3.0 x 2.0 cm solid pancreatic tail mass. 3. Patchy with right basilar consolidation possibly atelectasis or infection. 4. . Hepatic steatosis. Pertinent positive or negative findings of the imaging study reported as a CRITICAL EXAM to Frank at11:37 on 11/23/2018. Assessment & Plan - Diagnosis (1) Acute appendicitis Qualifiers: Acute appendicitis type: with localized peritonitis Appendicitis gangrene presence: unspecified whether gangrene present Appendicitis perforation presence: unspecified whether perforation present Appendicitis abscess presence: unspecified whether abscess present Qualified Code(s): K35.30 - Acute appendicitis with localized peritonitis, without perforation or gangrene Is this a current diagnosis for this admission?: Yes - Plan Summary Plan Summary: This is a 68-year-old male with right lower quadrant pain that is worsening. He has a history, physical, lab work, and CT scan consistent with appendicitis. I have reviewed his CT scan personally. He has inflammatory stranding in the r ight lower quadrant, with a thickened appendix. He also has a preponderance of segmented neutrophils on his CBC. I have recommended appendectomy for him. Plan for laparoscopic versus open appendectomy. Risks/benefits discussed, informed consent obtained, and all questions answered.
[2018-11-23] MEDS ORDERED: MIDAZOLAM 2 MG/2 ML INJ ONE (13:48)
[2018-11-23] MEDS ORDERED: FENTANYL CITRATE INJ/PF 100 MCG/2 ML AMPUL ONE (13:48)
[2018-11-23] MEDS ORDERED: ONDANSETRON HCL INJ/PF 4 MG/2 ML SDV ONE (13:48)
[2018-11-23] MEDS ORDERED: KETOROLAC TROMETHAMINE 60 MG/2 ML SDV ONE (13:48)
[2018-11-23] MEDS ORDERED: PROPOFOL INJ 200 MG/20 ML VIAL IV ONE (13:48)
[2018-11-23] MEDS ORDERED: DEXAMETHASONE SOD PHOSPHATE INJ 4 MG/1 ML VIAL ONE (13:48)
[2018-11-23] MEDS ORDERED: BUPIVACAINE HCL 0.25 % INJ/PF (2.5 MG/1 ML) 30 ML VIAL ONE (13:53)
[2018-11-23] MEDS ORDERED: EPHEDRINE SULFATE INJ 50 MG/1 ML AMPULE ONE (14:26)
[2018-11-23] MEDS ORDERED: DIPHENHYDRAMINE HCL 50 MG/ML VIAL IV PRN (14:40)
[2018-11-23] MEDS ORDERED: FENTANYL CITRATE INJ/PF 100 MCG/2 ML AMPUL IV PRN ×3 (14:40)
[2018-11-23] MEDS ORDERED: ONDANSETRON HCL INJ/PF 4 MG/2 ML SDV IV PRN (14:40)
[2018-11-23] MEDS ORDERED: PROMETHAZINE HCL INJ 25 MG/1 ML VIAL IV PRN ×2 (14:40)
[2018-11-23] MEDS ORDERED: MEPERIDINE HCL/PF INJ 25 MG/1 ML DISP.SYRIN IV PRN (14:40)
--- NOTE | 2018-11-23 15:59 | Operative Report ---
Nonrecallable Operative Report DATE OF SURGERY: 11/23/18 PREOPERATIVE DIAGNOSIS: Acute appendicitis POSTOPERATIVE DIAGNOSIS: Acute perforated appendicitis OPERATION: Laparoscopic appendectomy SURGEON: BRIAN COLVIN ANESTHESIA: GA TISSUE REMOVED OR ALTERED: Appendix COMPLICATIONS: None apparent ESTIMATED BLOOD LOSS: Minimal PROCEDURE: Drains/implants: None. Procedure in detail: After informed consent was obtained, the patient was brought to the operating room and laid in the supine position. The area of the abdomen was prepped and draped in a normal sterile fashion. A supraumbilical incision was created with a 15 blade scalpel. Dissection was carried to the subcutaneous tissue using sharp and blunt dissection. The linea alba fascia was incised sharply, the abdomen was entered sharply. The balloon trocar was inserted, and pneumoperitoneum was achieved. A suprapubic 5 mm port was then placed under direct laparoscopic visualization. A left lower quadrant 5 mm trocar was placed in similar fashion. Atraumatic graspers were placed through the 5 mm ports. There was a dense inflammatory reaction in the right lower quadrant. The appendix was identified. There was local evidence of perforation. There was a perforation identified near the base of the appendix with obvious necrosis of the appendiceal wall. The cecum appeared healthy. The appendix and cecum were freed from the lateral right lower quadrant. The mesoappendix was taken down using the harmonic scalpel. Due to the necrosis at the base of the appendix, an [place] stapler was chosen to divide the base of the cecum, removing the appendix. Great care was taken not to impinge upon the ileocecal valve. The staple line appeared in good order. The appendix was placed into an Endo Catch bag and removed through the supraumbilical port. The right lower quadrant was inspected, and was free of bleeding. Next, inspection of the abdominal cavity was undertaken. The right upper quadrant, left upper quadrant, left lower quadrant, and pelvis were inspected. There was no significant free fluid or abscess. There was a small amount of free fluid suctioned from the right lower quadrant. Once this was completed, omentum was packed into the right lower quadrant. The 5 mm trochars were removed under direct laparoscopic visualization. The supraumbilical trocar was removed, and pneumoperitoneum was relieved. The supraumbilical fascia was closed using 0 Vicryl suture in [id number] fashion. The overlying skin was closed using 4-0 Vicryl Rapide suture in subcuticular fashion. A dressing was placed, and the procedure was concluded. All sponge, instrument, and needle counts were correct x2. Condition: Stable.
[2018-11-23] MEDS ORDERED: ACETAMINOPHEN 1,000 MG/100 ML RTUPB IV ONE (16:29)
[2018-11-23] MEDS: PIPERACILLIN SODIUM/TAZOBACTAM 3.375 GM in NORMAL SALINE 100 ML IV SCH ×2 (18:41→23:28)
[2018-11-23] MEDS ORDERED: ATORVASTATIN CALCIUM 20 MG TABLET PO ONE ×2 (22:30→23:15)
[2018-11-23] MEDS ORDERED: DISOPYRAMIDE PHOSPHATE 150 MG CAPSULE ONE (23:00)
[2018-11-23] MEDS ORDERED: TAMSULOSIN HCL 0.4 MG CAP.SR.24H PO ONE (23:15)
[2018-11-23] MEDS ORDERED: DISOPYRAMIDE PHOSPHATE 150 MG CAPSULE PO ONE (23:15)
[2018-11-23] MEDS ORDERED: AMLODIPINE BESYLATE 5 MG TABLET PO ONE (23:15)
[2018-11-23] MEDS: HYDROCODONE/ACETAMINOPHEN 10-325 MG TABLET PO PRN (23:28)
[2018-11-23] MEDS: ONDANSETRON HCL INJ/PF 4 MG/2 ML SDV IV PRN (23:29)
[2018-11-24] MEDS: CALCIUM CARBONATE 500 MG TAB.CHEW PO PRN ×4 (01:33→22:38)
[2018-11-24] MEDS ORDERED: DISOPYRAMIDE PHOSPHATE 150 MG CAPSULE PO SCH (06:00)
[2018-11-24] MEDS: PIPERACILLIN SODIUM/TAZOBACTAM 3.375 GM in NORMAL SALINE 100 ML IV SCH ×3 (07:41→17:19)
[2018-11-24] MEDS: NORMAL SALINE 1000 ML 1,000 ML IV PRN (07:52)
[2018-11-24] MEDS: DISOPYRAMIDE PHOSPHATE 150 MG CAPSULE PO SCH ×3 (08:28→22:37)
[2018-11-24] MEDS: FUROSEMIDE 40 MG TABLET PO SCH (09:19)
[2018-11-24] MEDS: LOSARTAN POTASSIUM 50 MG TABLET PO SCH (09:20)
[2018-11-24] MEDS: AMLODIPINE BESYLATE 5 MG TABLET PO SCH ×2 (09:21→22:37)
[2018-11-24] MEDS: FEBUXOSTAT 40 MG TABLET PO SCH (09:21)
[2018-11-24] MEDS: HYDROCODONE/ACETAMINOPHEN 10-325 MG TABLET PO PRN (16:12)
--- NOTE | 2018-11-24 16:59 | PDOC PROGRESS REPORT ---
Subjective Progress Note for:: 11/24/18 Subjective:: More comfortable postop less pains Having flatus with a small amount of bowel movement this morning. Reason For Visit: ACUTE APPENDICITIS Physical Exam Vital Signs: Temp Pulse Resp BP Pulse Ox 98.8 F 70 17 135/63 H 98 11/24/18 08:39 11/24/18 08:39 11/24/18 08:39 11/24/18 08:39 11/24/18 08:39 Intake & Output 11/23/18 11/24/18 11/25/18 06:59 06:59 06:59 Intake Total 4640 800 Output Total 610 840 Balance 4030 -40 Weight 92.9 kg 98.1 kg Exam: Abdomen is soft with mild tewnderness primarily along the right lower quadrant Results Laboratory Results: 11/23/18 08:22 11/23/18 08:22 Impressions: Abdomen/Pelvis CT 11/23/18 10:10 IMPRESSION: 1. Dilated proximal appendix measuring up to 10 mm with periappendiceal stranding suggestive of appendicitis. Small volume pericecal fluid without focal drainable abscess. 2. 3.0 x 2.0 cm solid pancreatic tail mass. 3. Patchy with right basilar consolidation possibly atelectasis or infection. 4. . Hepatic steatosis. Pertinent positive or negative findings of the imaging study reported as a CRITICAL EXAM to Frank at11:37 on 11/23/2018. Assessment & Plan - Diagnosis (1) Acute appendicitis Qualifiers: Acute appendicitis type: with localized peritonitis Appendicitis gangrene presence: unspecified whether gangrene present Appendicitis perforation presence: unspecified whether perforation present Appendicitis abscess presence: unspecified whether abscess present Qualified Code(s): K35.30 - Acute appendicitis with localized peritonitis, without perforation or gangrene Is this a current diagnosis for this admission?: Yes (2) perforated appendicitis Is this a current diagnosis for this admission?: Yes - Time Time Spent with patient: 15-24 minutes - Inpatient Certification Medical Necessity: Need for IV Antibiotics - Plan Summary Plan Summary: There is feeling a lot better since the Dr. Baker noted perforated appendicitis it is prudent to keep him on at least another day of IV antibiotics. Possible discharge tomorrow on p.o. antibiotics.
[2018-11-24] MEDS ORDERED: TAMSULOSIN HCL 0.4 MG CAP.SR.24H PO SCH (18:00)
[2018-11-24] MEDS ORDERED: ACETAMINOPHEN 325 MG TABLET PO PRN (19:26)
[2018-11-24] MEDS ORDERED: ATORVASTATIN CALCIUM 20 MG TABLET PO SCH (22:00)
[2018-11-24] MEDS: ONDANSETRON HCL INJ/PF 4 MG/2 ML SDV IV PRN (22:50)
[2018-11-25] MEDS: PIPERACILLIN SODIUM/TAZOBACTAM 3.375 GM in NORMAL SALINE 100 ML IV SCH ×3 (02:17→11:44)
[2018-11-25] MEDS: DISOPYRAMIDE PHOSPHATE 150 MG CAPSULE PO SCH (06:38)
[2018-11-25] MEDS: CALCIUM CARBONATE 500 MG TAB.CHEW PO PRN (09:34)
[2018-11-25] MEDS: FEBUXOSTAT 40 MG TABLET PO SCH (09:35)
[2018-11-25] MEDS: AMLODIPINE BESYLATE 5 MG TABLET PO SCH (09:35)
[2018-11-25] MEDS: LOSARTAN POTASSIUM 50 MG TABLET PO SCH (09:36)
[2018-11-25] MEDS: FUROSEMIDE 40 MG TABLET PO SCH (09:36)
[2018-11-25 12:15] LABS: ABSOLUTE EOSINOPHILS # (AUTO) 0.1 10^3/uL (0.0-0.6); ABSOLUTE LYMPHOCYTES (AUTO) 0.4 10^3/uL (0.5-4.7); ABSOLUTE MONOCYTES (AUTO) 0.3 10^3/uL (0.1-1.4); ABSOLUTE NEUT (AUTO) 3.5 10^3/uL (1.7-8.2); BASOPHILS % (AUTO) 0.5 % (0-2); EOSINOPHILS % (AUTO) 3.1 % (0-6); HEMATOCRIT 35.6 % (37.9-51.0); HEMOGLOBIN 12.3 g/dL (13.5-17.0); LYMPHOCYTES % (AUTO) 9.6 % (13-45); MEAN CORPUSCULAR HGB CONC 34.6 g/dL (32.0-36.0); MEAN CORPUSCULAR VOLUME 98 fl (80-97); MONOCYTES % (AUTO) 7.6 % (3-13); PLATELET COUNT 101 10^3/uL (150-450); RED BLOOD COUNT 3.62 10^6/uL (4.35-5.55); RED CELL DISTRIBUTION WIDTH 13.1 % (11.5-14.0); SEGMENTED NEUTROPHILS % (AUTO) 79.2 % (42-78); TOTAL CELLS COUNTED % (AUTO) 100 %; WHITE BLOOD COUNT 4.4 10^3/uL (4.0-10.5)
[2018-11-25 12:25] VITALS: BP 136/71
--- NOTE | 2018-11-25 13:20 | PDOC DISCHARGE SUMMARY ---
General - Admit/Disc Date/PCP Admission Date/Primary Care Provider: 11/23/18 12:54 CRISTINA GRIJALVA MD Discharge Date: 11/25/18 - Discharge Diagnosis Final Diagnosis: Perforated acute appendicitis - Assessment Summary: 68-year-old male who underwent laparoscopic appendectomy on 11/23/[address] Baker for perforated acute appendicitis. Patient has been continued on IV antibiotics. On the day of discharge his white count is normal and no fever and tolerating regular diet. He was discharged on 11/25/2018 with a final diagnosis of acute perforated appendicitis. He does not need any further antibiotics at this time and she will he will be seen in the office care with Dr. Baker in 2weeks. - Additional Information Resuscitation Status: Full Code Discharge Diet: Regular Discharge Activity: Activity As Tolerated Referrals: BRIAN BAKER MD [ACTIVE STAFF] - Home Medications: Amlodipine Besylate [Norvasc 5 mg Tablet] 5 mg PO Q12 11/23/18 Atorvastatin Calcium [Lipitor 20 mg Tablet] 20 mg PO QPM 11/23/18 Disopyramide Phosphate [Norpace 150 mg Capsule] 300 mg PO Q8 11/23/18 Febuxostat [Uloric 40 mg Tablet] 40 mg PO DAILY 11/23/18 Furosemide [Lasix 40 mg Tablet] 40 mg PO DAILY 11/23/18 Losartan Potassium [Cozaar 100 mg Tablet] 100 mg PO DAILY 11/23/18 Tamsulosin HCl [Flomax 0.4 mg Cap.sr] 0.4 mg PO QPM 11/23/18 History of Present Illiness History of Present Illness: KAUSHIK ACE is a 68 year old male Physical Exam Vital Signs: Temp Pulse Resp BP Pulse Ox 98.2 F 62 16 136/71 H 97 11/25/18 12:21 11/25/18 12:21 11/25/18 12:21 11/25/18 12:21 11/25/18 12:21 Intake & Output 11/24/18 11/25/18 11/26/18 06:59 06:59 06:59 Intake Total 4640 1000 100 Output Total 610 1190 Balance 4030 -190 100 Weight 98.1 kg 97.1 kg Results Laboratory Results: WBC 4.4 10^3/uL (4.0-10.5) 11/25/18 11:52 RBC 3.62 10^6/uL (4.35-5.55) L 11/25/18 11:52 Hgb 12.3 g/dL (13.5-17.0) L 11/25/18 11:52 Hct 35.6 % (37.9-51.0) L 11/25/18 11:52 MCV 98 fl (80-97) H 11/25/18 11:52 MCH 34.0 pg (27.0-33.4) H 11/25/18 11:52 MCHC 34.6 g/dL (32.0-36.0) 11/25/18 11:52 RDW 13.1 % (11.5-14.0) 11/25/18 11:52 Plt Count 101 10^3/uL (150-450) L 11/25/18 11:52 Lymph % (Auto) 9.6 % (13-45) L 11/25/18 11:52 Henry % (Auto) 7.6 % (3-13) 11/25/18 11:52 Eos % (Auto) 3.1 % (0-6) 11/25/18 11:52 Baso % (Auto) 0.5 % (0-2) 11/25/18 11:52 Absolute Neuts (auto) 3.5 10^3/uL (1.7-8.2) 11/25/18 11:52 Absolute Lymphs (auto) 0.4 10^3/uL (0.5-4.7) L 11/25/18 11:52 Absolute Monos (auto) 0.3 10^3/uL (0.1-1.4) 11/25/18 11:52 Absolute Eos (auto) 0.1 10^3/uL (0.0-0.6) 11/25/18 11:52 Absolute Basos (auto) 0.0 10^3/uL (0.0-0.2) 11/25/18 11:52 Seg Neutrophils % 79.2 % (42-78) H 11/25/18 11:52 Sodium 136.6 mmol/L (137-145) L 11/23/18 08:22 Potassium 4.1 mmol/L (3.6-5.0) 11/23/18 08:22 Chloride 101 mmol/L (98-107) 11/23/18 08:22 Carbon Dioxide 27 mmol/L (22-30) 11/23/18 08:22 Anion Gap 9 (5-19) 11/23/18 08:22 BUN 19 mg/dL (7-20) 11/23/18 08:22 Creatinine 1.16 mg/dL (0.52-1.25) 11/23/18 08:22 Est GFR ( Amer) > 60 (>60) 11/23/18 08:22 Est GFR (MDRD) Non-Af > 60 (>60) 11/23/18 08:22 Glucose 110 mg/dL (75-110) 11/23/18 08:22 Calcium 9.5 mg/dL (8.4-10.2) 11/23/18 08:22 Total Bilirubin 1.8 mg/dL (0.2-1.3) H 11/23/18 08:22 Direct Bilirubin 0.2 mg/dL (0.0-0.4) 11/23/18 08:22 Neonat Total Bilirubin Not Reportable 11/23/18 08:22 Neonat Direct Bilirubin Not Reportable 11/23/18 08:22 Neonat Indirect Bili Not Reportable 11/23/18 08:22 AST 36 U/L (17-59) 11/23/18 08:22 ALT 29 U/L (<50) 11/23/18 08:22 Alkaline Phosphatase 69 U/L (38-126) 11/23/18 08:22 Total Protein 6.9 g/dL (6.3-8.2) 11/23/18 08:22 Albumin 4.1 g/dL (3.5-5.0) 11/23/18 08:22 Lipase 37.5 U/L (23-300) 11/23/18 08:22 Urine Color YELLOW 11/23/18 09:48 Urine Appearance CLEAR 11/23/18 09:48 Urine pH 8.0 (5.0-9.0) 11/23/18 09:48 Ur Specific [place] 1.014 11/23/18 09:48 Urine Protein NEGATIVE mg/dL (NEGATIVE) 11/23/18 09:48 Urine Glucose (UA) NEGATIVE mg/dL (NEGATIVE) 11/23/18 09:48 Urine Ketones 20 mg/dL (NEGATIVE) H 11/23/18 09:48 Urine Blood NEGATIVE (NEGATIVE) 11/23/18 09:48 Urine Nitrite NEGATIVE (NEGATIVE) 11/23/18 09:48 Urine Bilirubin NEGATIVE (NEGATIVE) 11/23/18 09:48 Urine Urobilinogen NEGATIVE mg/dL (<2.0) 11/23/18 09:48 Ur Leukocyte Esterase NEGATIVE (NEGATIVE) 11/23/18 09:48 Urine WBC (Auto) 0 /HPF 11/23/18 09:48 Urine RBC (Auto) 0 /HPF 11/23/18 09:48 U Hyaline Cast (Auto) 1 /LPF 11/23/18 09:48 Urine Mucus (Auto) RARE /LPF 11/23/18 09:48 Urine Ascorbic Acid NEGATIVE (NEGATIVE) 11/23/18 09:48 Impressions: Abdomen/Pelvis CT 11/23/18 10:10 IMPRESSION: 1. Dilated proximal appendix measuring up to 10 mm with periappendiceal stranding suggestive of appendicitis. Small volume pericecal fluid without focal drainable abscess. 2. 3.0 x 2.0 cm solid pancreatic tail mass. 3. Patchy with right basilar consolidation possibly atelectasis or infection. 4. . Hepatic steatosis. Pertinent positive or negative findings of the imaging study reported as a CRITICAL EXAM to Frank at11:37 on 11/23/2018.
== END 2018-11-25 13:19 | disposition home or self-care (01) ==
LOC: ER 06:18 → EH 12:54 → INTOOBSV 12:54 → 5 16:47
PROVIDERS: ADMIT Surgery; ATTEND Surgery
PROC: 0DTJ4ZZ Resection of Appendix, Percutaneous Endoscopic Approach (ICD-10-PCS; principal; 2018-11-23 13:30)
DX: K35.32 Acute appendicitis with perforation, localized peritonitis, and gangrene, without abscess (principal); I48.91 Unspecified atrial fibrillation; E78.5 Hyperlipidemia, unspecified; I10 Essential (primary) hypertension; M54.9 Dorsalgia, unspecified; Z79.899 Other long term (current) drug therapy; Z98.890 Other specified postprocedural states
CPT/HCPCS: 96376; 99284; 96361; 96374; 96375; 36415 ×2; 83690; 85025 ×2; 80053; 81001; 88304 ×2; 74177; 94799; 00840; 44970; G0378 ×4; A9270 ×16; J2250; J3490; J1885 ×2; J3010; J2270 ×2; J0330; J2405 ×2; J7050 ×3; J7030 ×2; J2704; J2543 ×3; J0131; 840; J1100

== ENCOUNTER 2018-12-09 10:37 | Emergency (ER) | payer MEDICARE, OTHER ==
--- NOTE | 2018-12-09 10:51 | ER Document Report ---
ED Medical Screen (RME) - General Chief Complaint: Abdominal Pain Stated Complaint: LEFT LOWER ABDOMINAL PAIN Time Seen by Provider: 12/09/18 10:48 Primary Care Provider: BRIAN COLVIN MD [Primary Care Provider] - Follow up as needed TRAVEL OUTSIDE OF THE [place] IN LAST 30 DAYS: No - HPI Notes: 12/09/18 10:50 Patient is a 68-year-old male with a history of diverticulosis/diverticulitis and appendectomy performed about 2 weeks ago who presents complaining of left lower quadrant abdominal pain that started this morning there is described as sharp. Pain does not radiate. Patient states that he has felt this pain before with diverticulitis and is concerned that he may have it again. Last bowel movement was yesterday. He has not had any melena or hematochezia. He is u rinating normally. I have treated and performed a rapid initial assessment of this patient. A comprehensive ED assessment and evaluation of the patient, analysis of test results and completion of medical decision making process will be conducted by additional ED providers. PHYSICAL EXAMINATION: GENERAL: Well-appearing, well-nourished and in no acute distress. A&Ox4. Answers questions appropriately. Abdomen: + LLQ tenderness. - Related Data Allergies/Adverse Reactions: prednisone [Prednisone] Allergy (Intermediate, Verified 12/09/18 10:44) upsets heart rate(put into a-fib) codeine [Codeine] Adverse Reaction (Mild, Verified 12/09/18 10:44) n/v Past Medical History - Social History Chew tobacco use (# tins/day): No Frequency of alcohol use: None Drug Abuse: None - Past Medical History Cardiac Medical History: Reports: Hx Atrial Fibrillation, Hx Hypercholesterolemia, Hx Hypertension Denies: Hx Coronary Artery Disease, Hx Heart Attack Pulmonary Medical History: Denies: Hx Asthma, Hx Bronchitis, Hx COPD, Hx Pneumonia Neurological Medical History: Denies: Hx Cerebrovascular Accident, Hx Seizures GI Medical History: Reports: Hx Gastroesophageal Reflux Disease Musculoskeltal Medical History: Denies Hx Arthritis Past Surgical History: Reports: Other - Laparoscopic right inguinal hernia in [place] [employer] in 2017 - Immunizations Hx Diphtheria, Pertussis, Tetanus Vaccination: No Doctor's Discharge - Discharge Referrals: BRIAN COLVIN MD [Primary Care Provider] - Follow up as needed
[2018-12-09 11:23] LABS: ABSOLUTE BASOPHILS # (AUTO) 0.1 10^3/uL (0.0-0.2); ABSOLUTE EOSINOPHILS # (AUTO) 0.1 10^3/uL (0.0-0.6); ABSOLUTE LYMPHOCYTES (AUTO) 0.9 10^3/uL (0.5-4.7); ABSOLUTE MONOCYTES (AUTO) 0.4 10^3/uL (0.1-1.4); ABSOLUTE NEUT (AUTO) 5.6 10^3/uL (1.7-8.2); BASOPHILS % (AUTO) 0.8 % (0-2); EOSINOPHILS % (AUTO) 1.3 % (0-6); HEMATOCRIT 39.2 % (37.9-51.0); HEMOGLOBIN 13.5 g/dL (13.5-17.0); LYMPHOCYTES % (AUTO) 12.2 % (13-45); MEAN CORPUSCULAR HEMOGLOBIN 33.4 pg (27.0-33.4); MEAN CORPUSCULAR HGB CONC 34.5 g/dL (32.0-36.0); MEAN CORPUSCULAR VOLUME 97 fl (80-97); PLATELET COUNT 264 10^3/uL (150-450); RED BLOOD COUNT 4.06 10^6/uL (4.35-5.55); RED CELL DISTRIBUTION WIDTH 13.4 % (11.5-14.0); SEGMENTED NEUTROPHILS % (AUTO) 80.7 % (42-78); TOTAL CELLS COUNTED % (AUTO) 100 %
[2018-12-09 11:44] LABS: ALBUMIN 4.1 g/dL (3.5-5.0); ALKALINE PHOSPHATASE 80 U/L (38-126); ANION GAP 10 (5-19); ASPARTATE AMINO TRANSFERASE 32 U/L (17-59); BILIRUBIN,DIRECT 0.2 mg/dL (0.0-0.4); BILIRUBIN,TOTAL 0.9 mg/dL (0.2-1.3); BLOOD UREA NITROGEN 16 mg/dL (7-20); CALCIUM 9.7 mg/dL (8.4-10.2); CARBON DIOXIDE 28 mmol/L (22-30); CHLORIDE 102 mmol/L (98-107); GLUCOSE 92 mg/dL (75-110)
--- NOTE | 2018-12-09 12:20 | ER Document Report ---
ED General - General Chief Complaint: Abdominal Pain Stated Complaint: LEFT LOWER ABDOMINAL PAIN Time Seen by Provider: 12/09/18 10:48 Primary Care Provider: BRIAN COLVIN MD [Primary Care Provider] - Follow up as needed TRAVEL OUTSIDE OF THE [place] IN LAST 30 DAYS: No - HPI Patient complains to provider of: LLQ pain Notes: Pleasant 68-year-old male presents with 8/10 sharp left lower quadrant pain without radiation nothing makes it better or worse. Patient had a recent appendectomy approximately 2 and half weeks ago. Since then he has had regular bowels with some diarrhea. Patient does have history of diverticular disease thinks it feels similar to that. Patient denies any nausea or vomiting or fever. Denies any trauma to his abdomen. - Related Data Allergies/Adverse Reactions: prednisone [Prednisone] Allergy (Intermediate, Verified 12/09/18 10:44) upsets heart rate(put into a-fib) codeine [Codeine] Adverse Reaction (Mild, Verified 12/09/18 10:44) n/v Past Medical History - Social History Smoking Status: Never Smoker Chew tobacco use (# tins/day): No Frequency of alcohol use: None Drug Abuse: None Family History: Reviewed & Not Pertinent Patient has suicidal ideation: No Patient has homicidal ideation: No - Past Medical History Cardiac Medical History: Reports: Hx Atrial Fibrillation, Hx Hypercholesterolemia, Hx Hypertension Denies: Hx Coronary Artery Disease, Hx Heart Attack Pulmonary Medical History: Denies: Hx Asthma, Hx Bronchitis, Hx COPD, Hx Pneumonia Neurological Medical History: Denies: Hx Cerebrovascular Accident, Hx Seizures GI Medical History: Reports: Hx Gastroesophageal Reflux Disease Musculoskeletal Medical History: Denies Hx Arthritis Past Surgical History: Reports: Other - Laparoscopic right inguinal hernia in [place] in 2017 - Immunizations Hx Diphtheria, Pertussis, Tetanus Vaccination: No Hx Pneumococcal Vaccination: 03/01/12 Review of Systems - Review of Systems Notes: REVIEW OF SYSTEMS: CONSTITUTIONAL: -fevers, -chills EENT: -eye pain, -difficulty swallowing, -nasal congestion CARDIOVASCULAR: -chest pain, -syncope. RESPIRATORY: -cough, -SOB GASTROINTESTINAL: positive abdominal pain, -nausea, -vomiting, positive diarrhea GENITOURINARY: -dysuria, -hematuria MUSCULOSKELETAL: -back pain, -neck pain SKIN: -rash or skin lesions. HEMATOLOGIC: -easy bruising or bleeding. LYMPHATIC: -swollen, enlarged glands. NEUROLOGICAL: -altered mental status or loss of consciousness, -headache, - neurologic symptoms PSYCHIATRIC: -anxiety, -depression. ALL OTHER SYSTEMS REVIEWED AND NEGATIVE. Physical Exam - Notes Notes: PHYSICAL EXAMINATION: GENERAL: Well-appearing, well-nourished and in no acute distress. HEAD: Atraumatic, normocephalic. EYES: Pupils equal round and reactive to light, extraocular movements intact, sclera anicteric, conjunctiva are normal. ENT: nares patent, oropharynx clear without exudates. Moist mucous membranes. NECK: Normal range of motion, supple without lymphadenopathy LUNGS: Breath sounds clear to auscultation bilaterally and equal. No wheezes rales or rhonchi. HEART: Regular rate and rhythm without murmurs ABDOMEN: Recent surgical scar umbilicus bandage in place, no profound cellulitis mild erythema. Patient tender in left lower quadrant no rebound or guarding negative Rubin sign EXTREMITIES: Normal range of motion, no pitting or edema. No cyanosis. NEUROLOGICAL: Cranial nerves grossly intact. Normal speech, normal gait. Nor mal sensory and motor exams. PSYCH: Normal mood, normal affect. SKIN: Warm, Dry, normal turgor, no rashes or lesions noted. Course - Re-evaluation Re-evalutation: 12/09/18 13:05 Patient is a physical exam concerning for possible diverticulitis. Patient's extensive lab work-up relatively unremarkable at this time no profound leuko cytosis tolerating oral intake. Patient not requiring any pain medication at this time. Patient's CAT scan is findings of diverticulitis. Will be initiated on antibiotic therapy, antiemetics and oral analgesia. Patient given strict return precautions if anything should worsen or change please return to the department. - Laboratory Result Diagrams: 12/09/18 11:00 12/09/18 11:00 Laboratory results interpreted by me: 12/09/18 12/09/18 11:00 11:30 RBC 4.06 L Lymph % (Auto) 12.2 L Seg Neutrophils % 80.7 H Urine Protein 30 H Urine Ketones TRACE H Discharge - Discharge Clinical Impression: Diverticulitis large intestine Qualifiers: Diverticulitis bleeding: without bleeding Diverticulitis complication: without perforation or abscess Qualified Code(s): K57.32 - Diverticulitis of large intestine without perforation or abscess without bleeding Condition: Stable Disposition: HOME, SELF-CARE Instructions: Diverticulitis ([facility]) Prescriptions: Amox Tr/Potassium Clavulanate [Augmentin 875-125 Tablet] 1 tab PO BID 10 Days tablet Oxycodone HCl [Oxycontin Ir 5 Mg Tablet] 1 - 2 mg PO Q4H PRN #15 tablet PRN Reason: For Pain Ondansetron [Zofran Odt 4 mg Tablet] 1 - 2 tab PO Q4H PRN #15 tab.rapdis PRN Reason: For Nausea/Vomiting Referrals: BRIAN COLVIN MD [Primary Care Provider] - Follow up as needed
[2018-12-09 12:28] LABS: APPEARANCE,URINE CLEAR; BILIRUBIN,URINE NEGATIVE (NEGATIVE); COLOR,URINE YELLOW; GLUCOSE, URINE NEGATIVE (NEGATIVE); KETONES,URINE TRACE mg/dL (NEGATIVE); LEUKOCYTE ESTERASE,URINE NEGATIVE (NEGATIVE); NITRITE,URINE NEGATIVE (NEGATIVE); PROTEIN,URINE 30 mg/dL (NEGATIVE); URINE SPECIFIC GRAVITY 1.021; UROBILINOGEN,URINE NEGATIVE mg/dL (<2.0)
--- NOTE | 2018-12-09 13:16 | RADIOLOGY REPORT (SQ) ---
EXAM DESCRIPTION: CT ABD/PELVIS WITH IV ONLY COMPLETED DATE/TIME: 12/09/2018 12:50 pm REASON FOR STUDY: LLQ pain, appendectomy 2 weeks ago, h/o divert. COMPARISON: 11/23/2018 TECHNIQUE: CT scan of the abdomen and pelvis performed using helical scanning technique with dynamic intravenous contrast injection. No oral contrast. Images reviewed with lung, soft tissue, and bone windows. Reconstructed coronal and sagittal MPR images reviewed. Delayed images for evaluation of the urinary system also acquired. All images stored on PACS. All CT scanners at this facility use dose modulation, iterative reconstruction, and/or weight based d osing when appropriate to reduce radiation dose to as low as reasonably achievable (ALARA). [facility]: Dose Right [facility]: CareDose [facility]: Dose Right [facility]: Teradose 4D [facility]: MANGO BCN CONTRAST TYPE AND DOSE: contrast/concentration: Isovue 350.00 mg/ml; Total Contrast Delivered: 100.0 ml; Total Saline Delivered: 69.0 ml RENAL FUNCTION: BUN 16 creatinine 1.14 RADIATION DOSE: CT Rad equipment meets quality standard of care and radiation dose reduction techniq ues were employed. CTDIvol: 13.8 - 17.3 mGy. DLP: 1764 mGy-cm.. LIMITATIONS: None. FINDINGS: LOWER CHEST: No significant findings. No nodules or infiltrates. LIVER: The liver is mildly hypoattenuating. There is no mass. SPLEEN: Normal size. No focal lesions. PANCREAS: There is mild fatty replacement of the pancreas. Cannot exclude a 30 mm solid mass in the tail of the pancreas. It is possible this could represent focal sparing of the fatty infiltration or perhaps even a splenule. GALLBLADDER: No identified stones by CT criteria. No inflammatory changes to suggest cholecystitis. ADRENAL GLANDS: No significant masses or asymmetry. RIGHT KIDNEY AND URETER: No solid masses. Small cysts are seen. No significant calcifications. N o hydronephrosis or hydroureter. LEFT KIDNEY AND URETER: No solid masses. Small cysts are seen. No significant calcifications. No hydronephrosis or hydroureter. AORTA AND VESSELS: No aneurysm. No dissection. Renal arteries, SMA, celiac without stenosis. RETROPERITONEUM: No retroperitoneal adenopathy, hemorrhage or masses. BOWEL AND PERITONEAL CAVITY: Mild descending and sigmoid diverticulosis. There are inflammatory chopra ges in the upper sigmoid. See images 59 and 60 of series 5. There is no abscess. There is no free air or fluid. APPENDIX: Surgically absent. PELVIS: No mass. No free fluid. Normal bladder. ABDOMINAL WALL: No masses. No hernias. BONES: No significant or acute findings. OTHER: No other significant finding. IMPRESSION: 1. Mild sigmoid diverticulitis. There is no abscess. 2. Mild hepatic steatosis. 3. Possible solid mass in the tail of the pancreas as described. TECHNICAL DOCUMENTATION: JOB ID: [id number] Quality ID # [id number]: Final reports with documentation of one or more dose reduction techniques (e.g., Au tomated exposure control, adjustment of the mA and/or kV according to patient size, use of iterative reconstruction technique) 2010 [email or web address]- All Rights Reserved Reading location - IP/workstation name: [email or web address]
[2018-12-09 13:32] VITALS: BP 152/76
== END 2018-12-09 13:32 | disposition home or self-care (01) ==
LOC: ER 10:37
DX: K57.32 Diverticulitis of large intestine without perforation or abscess without bleeding (principal); R10.32 Left lower quadrant pain; I48.91 Unspecified atrial fibrillation; E78.00 Pure hypercholesterolemia, unspecified; I10 Essential (primary) hypertension; Z88.6 Allergy status to analgesic agent
CPT/HCPCS: 36415; 74177; 80053; 81001; 83690; 85025; 99284

== ENCOUNTER 2018-12-12 09:57 | Emergency (ER) | payer MEDICARE, OTHER ==
[2018-12-12 12:34] LABS: ABSOLUTE EOSINOPHILS # (AUTO) 0.1 10^3/uL (0.0-0.6); ABSOLUTE LYMPHOCYTES (AUTO) 0.6 10^3/uL (0.5-4.7); ABSOLUTE MONOCYTES (AUTO) 0.3 10^3/uL (0.1-1.4); ABSOLUTE NEUT (AUTO) 3.5 10^3/uL (1.7-8.2); BASOPHILS % (AUTO) 0.9 % (0-2); EOSINOPHILS % (AUTO) 1.7 % (0-6); HEMATOCRIT 36.4 % (37.9-51.0); HEMOGLOBIN 12.7 g/dL (13.5-17.0); MEAN CORPUSCULAR HEMOGLOBIN 33.6 pg (27.0-33.4); MEAN CORPUSCULAR HGB CONC 34.8 g/dL (32.0-36.0); MEAN CORPUSCULAR VOLUME 97 fl (80-97); MONOCYTES % (AUTO) 6.2 % (3-13); PLATELET COUNT 200 10^3/uL (150-450); RED BLOOD COUNT 3.78 10^6/uL (4.35-5.55); RED CELL DISTRIBUTION WIDTH 13.4 % (11.5-14.0); SEGMENTED NEUTROPHILS % (AUTO) 77.2 % (42-78); TOTAL CELLS COUNTED % (AUTO) 100 %; WHITE BLOOD COUNT 4.6 10^3/uL (4.0-10.5)
--- NOTE | 2018-12-12 12:37 | ER Document Report ---
ED General - General Chief Complaint: Abdominal Pain Stated Complaint: RIGHT SIDE PAIN Time Seen by Provider: 12/12/18 11:52 Primary Care Provider: NICHOLAS PACHECO MD [Primary Care Provider] - Follow up as needed Notes: 68-year-old male comes in complaining of right-sided abdominal and chest discomfort. The patient states he began having discomfort in the right upper portion of his abdomen. He states discomfort began last night. Patient was just here for diverticulitis several days ago. He has history of appendectomy. He has noticed no rashes on his abdomen. He denies fever chills cough or sore throat denies shortness of breath. TRAVEL OUTSIDE OF THE [place] IN LAST 30 DAYS: No - Related Data Allergies/Adverse Reactions: prednisone [Prednisone] Allergy (Intermediate, Verified 12/09/18 10:44) upsets heart rate(put into a-fib) codeine [Codeine] Adverse Reaction (Mild, Verified 12/09/18 10:44) n/v Past Medical History - Social History Smoking Status: Never Smoker Family History: Reviewed & Not Pertinent Patient has suicidal ideation: No Patient has homicidal ideation: No - Past Medical History Cardiac Medical History: Reports: Hx Atrial Fibrillation, Hx Hypercholesterolemia, Hx Hypertension Denies: Hx Coronary Artery Disease, Hx Heart Attack Pulmonary Medical History: Denies: Hx Asthma, Hx Bronchitis, Hx COPD, Hx Pneumonia Neurological Medical History: Denies: Hx Cerebrovascular Accident, Hx Seizures GI Medical History: Reports: Hx Gastroesophageal Reflux Disease Musculoskeletal Medical History: Denies Hx Arthritis Past Surgical History: Reports: Hx Appendectomy, Other - Laparoscopic right inguinal hernia in [place] in 2017 - Immunizations Hx Diphtheria, Pertussis, Tetanus Vaccination: No Hx Pneumococcal Vaccination: 03/01/12 Review of Systems - Review of Systems Constitutional: denies: Chills, Fever EENT: denies: Throat pain, Difficulty swallowing Cardiovascular: denies: Chest pain, Heart racing, Orthopnea, Dyspnea, Edema Respiratory: denies: Cough, Hurts to breathe, Hemoptysis, Short of breath Gastrointestinal: Abdominal pain. denies: Diarrhea, Nausea, Vomiting Neurological/Psychological: denies: Headaches -: Yes All other systems reviewed and negative Physical Exam - Vital signs Vitals: Temp Pulse Resp BP Pulse Ox 97.6 F 63 18 127/63 H 100 12/12/18 10:35 12/12/18 10:35 12/12/18 10:35 12/12/18 10:35 12/12/18 10:35 - Notes Notes: GENERAL_APPEARANCE: well_nourished, alert, cooperative, no_acute_distress, no_obvious_discomfort. VITALS: reviewed, see vital signs table. HEAD: no_swelling\tenderness on the head. EYES: PERRL, EOMI, conjunctiva_clear. NOSE: no_nasal_discharge. MOUTH: (-)decreased moisture. THROAT: no_tonsilar_inflammation, no_airway_obstruction. no_lymphadenopathy NECK: supple, no_neck_tenderness, (-)thyromegaly. BACK: no_back_tenderness. CHEST_WALL: no_chest_tenderness. LUNGS: no_wheezing, no_rales, no_rhonchi, (-)accessory muscle use, good air exchange bilateral. HEART: normal_rate, normal_rhythm, normal_S1, normal_S2, (-)S3, (-)S4, no_murmur, no_rub. ABDOMEN: Right upper quadrant_abd_tenderness, (-)guarding, (-)rebound, no_organomegaly, no_abd_masses. EXTREMITIES: s good pulses in all_extremities, no_swelling\tenderness in the extremities, no_edema. SKIN: warm, dry, good_color, there is some faint skin redness extending around from the back to the right upper quadrant. I cannot tell if there is vesicles it is too early this may been from the patient just rubbing the area. MENTAL_STATUS: speech_clear, oriented_X_3, normal_affect, re sponds_appropriately to questions. Course - Re-evaluation Re-evalutation: 12/12/18 12:[address] 2 days ago showed diverticulitis. We will recheck his blood work and get an ultrasound. This may be early shingles. There is some skin discoloration extending from the back to the front on that right side. There is no vesicles that I can see. The skin may be from him rubbing the area it is difficult to tell but this seems consistent. 12/12/18 15:24 Work appears been very reassuring ultrasound shows a fatty liver otherwise negative. This is either musculoskeletal or shingles. The redness rash is still persistent. I will prescribe the patient Valtrex. He has a follow-up with surgery this week. Again is too early to tell but I feel this may be shingles. He is not vomiting he is hungry. I do not think this is intra- abdominal at this time - Vital Signs Vital signs: Temp Pulse Resp BP Pulse Ox 97.6 F 63 18 127/63 H 100 12/12/18 10:35 12/12/18 10:35 12/12/18 10:35 12/12/18 10:35 12/12/18 10:35 - Laboratory Result Diagrams: 12/12/18 12:25 12/12/18 12:25 Laboratory results interpreted by me: 12/12/18 12/12/18 12/12/18 12:25 12:25 12:25 RBC 3.78 L Hgb 12.7 L Hct 36.4 L MCH 33.6 H Glucose 59 L POC Glucose Urine Ketones 20 H 12/12/18 13:03 RBC Hgb Hct MCH Glucose POC Glucose 58 L Urine Ketones - Diagnostic Test Radiology reviewed: Reports reviewed Radiology results interpreted by me: 12/12/18 15:24 Abdomen Ultrasound 12/12/18 12:11 IMPRESSION: Fatty liver. No acute findings. Discharge - Discharge Clinical Impression: Abdominal pain Shingles Qualifiers: Herpes zoster complications: without complications Qualified Code(s): B02.9 - Zoster without complications Condition: Good Disposition: HOME, SELF-CARE Instructions: Shingles ([facility]), Abdominal Pain ([facility]) Prescriptions: Valacyclovir HCl [Valtrex] 1,000 mg PO TID #21 tablet Referrals: NICHOLAS PACHECO MD [Primary Care Provider] - Follow up as needed
[2018-12-12 12:56] LABS: ALBUMIN 3.8 g/dL (3.5-5.0); ALKALINE PHOSPHATASE 68 U/L (38-126); ANION GAP 12 (5-19); ASPARTATE AMINO TRANSFERASE 31 U/L (17-59); BILIRUBIN,DIRECT 0.2 mg/dL (0.0-0.4); BLOOD UREA NITROGEN 19 mg/dL (7-20); CALCIUM 9.7 mg/dL (8.4-10.2); CARBON DIOXIDE 26 mmol/L (22-30); CHLORIDE 100 mmol/L (98-107); POTASSIUM 4.3 mmol/L (3.6-5.0); TOTAL PROTEIN 6.8 g/dL (6.3-8.2)
[2018-12-12 12:57] LABS: GLUCOSE 59 mg/dL (75-110)
[2018-12-12 13:13] LABS: APPEARANCE,URINE CLEAR; BILIRUBIN,URINE NEGATIVE (NEGATIVE); COLOR,URINE YELLOW; GLUCOSE, URINE NEGATIVE (NEGATIVE); KETONES,URINE 20 mg/dL (NEGATIVE); LEUKOCYTE ESTERASE,URINE NEGATIVE (NEGATIVE); NITRITE,URINE NEGATIVE (NEGATIVE); PROTEIN,URINE NEGATIVE (NEGATIVE); URINE SPECIFIC GRAVITY 1.019; UROBILINOGEN,URINE NEGATIVE mg/dL (<2.0)
--- NOTE | 2018-12-12 15:03 | RADIOLOGY REPORT (SQ) ---
EXAM DESCRIPTION: U/S ABDOMEN LIMITED W/O DOP COMPLETED DATE/TIME: 12/12/2018 2:45 pm REASON FOR STUDY: RUQ PAIN COMPARISON: None. TECHNIQUE: Dynamic and static grayscale images acquired of the abdomen and recorded on PACS. Additio nal selected color Doppler and spectral images recorded. LIMITATIONS: Limited visualization. Poor acoustical window FINDINGS: PANCREAS: Limited visualization. no masses seen LIVER: Normal size Mild fatty infiltration. No focal masses. LIVER VASCULATURE: Normal directional flow of the main portal vein and hepatic veins. GALLBLADDER: No stones. Normal wall thickness. No pericholecystic fluid. ULTRASOUND-DETECTED MOON'S SIGN: Negative. INTRAHEPATIC DUCTS AND COMMON DUCT: CBD and intrahepatic ducts normal caliber. No filling defects. INFERIOR VENA CAVA: Normal flow. AORTA: No aneurysm. RIGHT KIDNEY: Normal size. Multiple cysts measuring up to 4 cm. No solid or suspicious masses. No hydronephrosis. No calcifications. PERITONEAL AND RIGHT PLEURAL SPACE: No ascites or effusions. OTHER: No other significant findings. IMPRESSION: Fatty liver. No acute findings. TECHNICAL DOCUMENTATION: JOB ID: [id number] [employer]- All Rights Reserved Reading location - IP/workstation name: [email or web address]
[2018-12-12 15:35] VITALS: BP 124/65
== END 2018-12-12 15:33 | disposition home or self-care (01) ==
LOC: ER 09:57
DX: B02.9 Zoster without complications (principal); R10.11 Right upper quadrant pain; R10.811 Right upper quadrant abdominal tenderness; K76.0 Fatty (change of) liver, not elsewhere classified; R09.89 Other specified symptoms and signs involving the circulatory and respiratory systems; I10 Essential (primary) hypertension; Z90.49 Acquired absence of other specified parts of digestive tract; Z88.8 Allergy status to other drugs, medicaments and biological substances
CPT/HCPCS: 36415; 76705; 80053; 81001; 82962; 83690; 85025; 99284

== ENCOUNTER → 2018-12-16 | Outpatient (CLI) | payer MEDICARE, OTHER ==
[2018-12-16 11:35] LABS: APPEARANCE,URINE CLEAR; BILIRUBIN,URINE NEGATIVE (NEGATIVE); COLOR,URINE YELLOW; GLUCOSE, URINE NEGATIVE (NEGATIVE); KETONES,URINE NEGATIVE (NEGATIVE); LEUKOCYTE ESTERASE,URINE NEGATIVE (NEGATIVE); NITRITE,URINE NEGATIVE (NEGATIVE); PROTEIN,URINE NEGATIVE (NEGATIVE); UROBILINOGEN,URINE NEGATIVE mg/dL (<2.0)
[2018-12-16 11:52] LABS: ANION GAP 10 (5-19); BLOOD UREA NITROGEN 16 mg/dL (7-20); CALCIUM 9.8 mg/dL (8.4-10.2); CARBON DIOXIDE 27 mmol/L (22-30); CHLORIDE 102 mmol/L (98-107); GLUCOSE 88 mg/dL (75-110); POTASSIUM 4.3 mmol/L (3.6-5.0)
== END ==
LOC: OD 10:59
PROVIDERS: ATTEND Internal Medicine Nephrology
DX: I12.9 Hypertensive chronic kidney disease with stage 1 through stage 4 chronic kidney disease, or unspecified chronic kidney disease (principal); N18.2 Chronic kidney disease, stage 2 (mild)
CPT/HCPCS: 36415; 80048; 81001

== ENCOUNTER → 2018-12-21 | Outpatient (CLI) | payer MEDICARE, OTHER ==
[~2018-12-21] MED LIST: REGADENOSON INJ 0.4 MG/5 ML DISP.SYRIN IV ONE
--- NOTE | 2018-12-21 22:02 | DRAGON STRESS TEST REPORT ---
Intravenous Lexiscan Cardiolite stress test using single photon emmision computerized tomography. Date of procedure: 12/21/2018.Ordering Provider: Dr. Gertrude Saleem.Patient's status: Out Patient Indication: Paroxysmal atrial fibrillation and preoperative cardiac risk assessment. Coronary risk factors: Age, and hypertension. Resting EKG: Sinus rhythm. First-degree AV block poor R wave leads V1 to V6 Stress EKG: No changes of ischemia. The patient had no chest pain or discomfort, and there were no arrhythmias seen. Reason for termination: Protocol. Conclusions: Normal EKG and hemodynamic response to IV Lexiscan. Nuclear data: At rest the patient was given 14.49 millicuries of technetium 99m sestamibi injected intravenously. As per protocol rest non gated SPECT images were obtained. Subsequently the patient was given intravenous Lexiscan at a dose of 0.4 mg in 5 mL intravenously, followed by flush with normal saline. Subsequently the stress dose of 40.8 millicuries of technetium 99m sestamibi was injected intravenously. As per protocol stress gated images were obtained. Nuclear interpretation: Review of images showed that there is bowel and liver contamination artifact of the inferior wall. In spite of this all segments of the myocardium had normal perfusion at rest, and normal perfusion post stress with IV Lexiscan. All segments of the myocardium had normal motion, contraction, and thickening by gated study. T. I D. ratio was normal at 1.01. There is no transient ischemic dilatation of the left ventricle. Computer read rest, and stress left ventricular ejection fraction were 64 %, and 65 %, respectively. Conclusion: 1. There is no scintigraphic evidence of Lexiscan induced myocardial ischemia. 2. There is no scintigraphic evidence of myocardial infarction/scar. Recommendations: Aggressive risk factor modification, and treating the underlying co- morbidities. MTDD
== END ==
LOC: RAD 07:45
PROVIDERS: ATTEND Specialist
DX: I48.0 Paroxysmal atrial fibrillation (principal)
CPT/HCPCS: 93017; 78452; A9500; J2785; Q9969

== ENCOUNTER 2019-01-05 05:18 | Inpatient (IN) | payer MEDICARE, OTHER ==
[2018-12-29 10:08] LABS: ABSOLUTE EOSINOPHILS # (AUTO) 0.1 10^3/uL (0.0-0.6); ABSOLUTE LYMPHOCYTES (AUTO) 1.1 10^3/uL (0.5-4.7); ABSOLUTE MONOCYTES (AUTO) 0.3 10^3/uL (0.1-1.4); ABSOLUTE NEUT (AUTO) 3.2 10^3/uL (1.7-8.2); BASOPHILS % (AUTO) 0.7 % (0-2); EOSINOPHILS % (AUTO) 2.4 % (0-6); HEMATOCRIT 37.8 % (37.9-51.0); HEMOGLOBIN 13.4 g/dL (13.5-17.0); LYMPHOCYTES % (AUTO) 22.9 % (13-45); MEAN CORPUSCULAR HEMOGLOBIN 34.1 pg (27.0-33.4); MEAN CORPUSCULAR HGB CONC 35.5 g/dL (32.0-36.0); MEAN CORPUSCULAR VOLUME 96 fl (80-97); MONOCYTES % (AUTO) 6.5 % (3-13); PLATELET COUNT 135 10^3/uL (150-450); RED BLOOD COUNT 3.93 10^6/uL (4.35-5.55); RED CELL DISTRIBUTION WIDTH 14.7 % (11.5-14.0); SEGMENTED NEUTROPHILS % (AUTO) 67.5 % (42-78); TOTAL CELLS COUNTED % (AUTO) 100 %; WHITE BLOOD COUNT 4.8 10^3/uL (4.0-10.5)
[2018-12-29 10:32] LABS: ANION GAP 10 (5-19); BLOOD UREA NITROGEN 15 mg/dL (7-20); CALCIUM 9.6 mg/dL (8.4-10.2); CARBON DIOXIDE 28 mmol/L (22-30); CHLORIDE 106 mmol/L (98-107); GLUCOSE 74 mg/dL (75-110); POTASSIUM 3.6 mmol/L (3.6-5.0)
--- NOTE | 2018-12-29 10:34 | RADIOLOGY REPORT (SQ) ---
EXAM DESCRIPTION: CHEST PA/LATERAL COMPLETED DATE/TIME: 12/29/2018 9:53 am REASON FOR STUDY: PRE-OP COMPARISON: 10/05/2014 EXAM PARAMETERS: NUMBER OF VIEWS: two views TECHNIQUE: Digital Frontal and Lateral radiographic views of the chest acquired. RADIATION DOSE: NA LIMITATIONS: none FINDINGS: LUNGS AND PLEURA: No opacities, masses or pneumothorax. No pleural effusion. MEDIASTINUM AND HILAR STRUCTURES: No masses or contour abnormalities. HEART AND VASCULAR STRUCTURES: Heart normal size. No evidence for failure. BONES: No acute findings. HARDWARE: None in the chest. OTHER: No other significant finding. IMPRESSION: NO SIGNIFICANT RADIOGRAPHIC FINDING IN THE CHEST. TECHNICAL DOCUMENTATION: JOB ID: [id number] [employer]- All Rights Reserved Reading location - IP/workstation name: [email or web address]
[~2019-01-05 05:18] MED LIST changes: +CEFAZOLIN SODIUM 1 GM in DEXTROSE 5%-WATER 50 ML IV PRN; +LIDOCAINE 0.5% INJ-PF (5 MG/ML) 50 ML SDV SUBCUT PRN; +METRONIDAZOLE 500 MG/NS RTU 500 MG/100 ML RTUPB IV ONE; +METRONIDAZOLE 500 MG/NS RTU 500 MG/100 ML RTUPB IV PRN; +NORMAL SALINE 1000 ML (RENAL PATIENTS) IV PRN; -REGADENOSON INJ 0.4 MG/5 ML DISP.SYRIN IV ONE
[2019-01-05] MEDS ORDERED: MIDAZOLAM 2 MG/2 ML INJ ONE (06:49)
[2019-01-05] MEDS ORDERED: PROPOFOL INJ 200 MG/20 ML VIAL IV ONE (06:50)
[2019-01-05] MEDS ORDERED: FENTANYL CITRATE INJ/PF 100 MCG/2 ML AMPUL ONE ×2 (06:50→11:36)
[2019-01-05] MEDS ORDERED: HYDROMORPHONE HCL INJ/PF 2 MG/ML AMPULE ONE (06:50)
[2019-01-05] MEDS ORDERED: LIDOCAINE 2% INJ (20 MG/ML) 20 ML MDV ONE (06:51)
[2019-01-05] MEDS ORDERED: BUPIVACAINE HCL 0.25 % INJ/PF (2.5 MG/1 ML) 30 ML VIAL ONE (07:44)
[2019-01-05] MEDS ORDERED: BUPIVACAINE INJ/PF LIPOSOME/PF 266 MG/20 ML SDV ONE (07:46)
[2019-01-05] MEDS ORDERED: OXYCODONE-ACETAMINOPHEN 5-325 MG TABLET PO PRN ×2 (08:20)
[2019-01-05] MEDS ORDERED: MEPERIDINE HCL/PF INJ 25 MG/1 ML DISP.SYRIN IV PRN (08:20)
[2019-01-05] MEDS ORDERED: ONDANSETRON HCL INJ/PF 4 MG/2 ML SDV IV PRN (08:20)
[2019-01-05] MEDS ORDERED: FENTANYL CITRATE INJ/PF 100 MCG/2 ML AMPUL IV PRN ×2 (08:20)
[2019-01-05] MEDS ORDERED: MORPHINE SULFATE 10 MG/ML INJ IV PRN (08:20)
[2019-01-05] MEDS ORDERED: DIPHENHYDRAMINE HCL 50 MG/ML VIAL IV PRN (08:20)
[2019-01-05] MEDS ORDERED: PROMETHAZINE HCL INJ 25 MG/1 ML VIAL IV PRN (08:20)
[2019-01-05] MEDS ORDERED: ONDANSETRON HCL INJ/PF 4 MG/2 ML SDV ONE ×2 (11:15→13:24)
[2019-01-05] MEDS ORDERED: MORPHINE SULFATE 10 MG/ML INJ ONE (11:15)
[2019-01-05] MEDS: FENTANYL CITRATE INJ/PF 100 MCG/2 ML AMPUL IV PRN ×2 (11:34→12:00)
--- NOTE | 2019-01-05 11:36 | Operative Report ---
Nonrecallable Operative Report DATE OF SURGERY: 01/05/19 PREOPERATIVE DIAGNOSIS: pancreatic mass POSTOPERATIVE DIAGNOSIS: pancreatic mass OPERATION: distal pancreatectomy/splenectomy SURGEON: HARMEET GALICIA INDIVIDUAL PENSION CONSULTANT: MARCY SOTO ANESTHESIA: GA TISSUE REMOVED OR ALTERED: pancrease/spleen COMPLICATIONS: none ESTIMATED BLOOD LOSS: 450cc INTRAOPERATIVE FINDINGS: see dictation PROCEDURE: Patient did not was brought to the operating awake alert stable condition placed the operative table supine position induced under general anesthesia intubated After appropriate timeout site verification the abdomen was prepped and draped in usual sterile fashion for the procedure. Her graph a varies needle was placed into the umbilicus and the abdomen was insufflated with 6 L of CO2 gas a left lateral abdominal 10 mm incision was made with a 15 blade and a 10 mm port placed into the abdominal cavity intra-abdominal visualization revealed no evidence of Veress needle or trocar injury. 2 right sided ports were placed a 5 and a 10 in the right upper quadrant and right lower quadrant and another 5 mm lateral port was placed on the left side we turned attention to the left colon first we took down the white line of Toldt between the sigmoid colon and the splenic flexure to mobilize the splenic flexure the colon medially this allowed us to identify the left kidney noted a large cyst in the left kidney as we mobilized the colon medially we entered the lesser sac. This allowed us to mobilize the short gastric vessels from the mid greater curvature to the angle of Hiss and retract the left colon and stomach away from the body the pancreas we then encountered the body of the pancreas it was slightly swollen we identified a swelling in the tail. Once this was accomplished we then turned attention to the inferior edge of the pancreas and the peritoneum was incised with the LigaSure device all the way from mid body just to the left of the spur mesenteric vein and we incised the peritoneum laterally to the tail. We then able to lift the pancreas anteriorly and gain access to the undersurface of its identifying the splenic artery and splenic vein. I then came across the body the pancreas just to the left of the super mesenteric vein with an Endo JADON stapler with a green load. The artery was handled similarly with the Endo JADON stapler. The vein was also divided with the stapler. We then were able to mobilize the top portion of the pancreas with the LigaSure device all the way to the spleen. We have previously taken down the short gastric vessels with the LigaSure device that we we then mobilized the Vega splenic ligaments with the LigaSure device. This allowed us to completely free up specimen placed in Endobag and bring it out through the left sided abdominal port site. We had to enlarge the port site somewhat with the 15 blade and Bovie cautery approximately 4 cm wide to allow us to deliver the specimen. Specimen was cut open on the back table we noted a cystic lesion that would had clot within it in the tail the pancreas. We will send down the pathology initial frozen sections did not reveal any carcinoma. The edge of the pancreas remaining was oversewn with [id number] placed 0 Vicryl sutures to control bleeding and to compress the parenchyma. Once this was accomplished we sprayed the right edge of the pancreas with Tisseel tissue sealant and return the left colon to the left upper quadrant as well as the stomach to its normal anatomic position. Placed a Tima-Aggarwal drain in the splenic fossa abutting the edge of the cut pancreas and brought it out through a stab wound in the right upper quadrant. Once this was done we released the pneumoperitoneum we closed a left-sided incision in 2 layers the posterior rectus sheath was closed with a running 0 Vicryl and the anterior sheath was closed with interrupted 0 Vicryl sutures. The other 10 mm port sites were closed with 0 Vicryl in the fashion and all skin incisions were closed with intracuticular 4-0 Biosyn. Steri-Strips completed the procedure. Estimated blood loss was 450 cc. The patient was awakened in the operating extubated transferred recovery in stable condition no complications. Marcy tsaiellayla GRACE was present for the entire procedure for help with wound retraction wound closure.
[2019-01-05] MEDS: ACETAMINOPHEN INJ/PF 1000 MG/100 ML SDV IV SCH ×3 (12:51→23:38)
[2019-01-05] MEDS: POTASSI CL 20 MEQ/D5-1/2NS 1L 1,000 ML IV PRN ×2 (13:22→21:34)
[2019-01-05] MEDS ORDERED: NEOSTIGMINE METHYLSULFATE 10 MG/10 ML VIAL ONE (13:24)
[2019-01-05] MEDS ORDERED: SUCCINYLCHOLINE CHLORIDE INJ 200 MG/10 ML VIAL ONE (13:24)
[2019-01-05] MEDS ORDERED: ROCURONIUM BROMIDE INJ 50 MG/5 ML VIAL IV ONE (13:24)
[2019-01-05] MEDS ORDERED: DEXAMETHASONE SOD PHOSPHATE INJ 4 MG/1 ML VIAL ONE (13:24)
[2019-01-05] MEDS ORDERED: GLYCOPYRROLATE 1 MG/5 ML VIAL ONE (13:24)
[2019-01-05] MEDS ORDERED: PHENYLEPHRINE HCL INJ/PF 10 MG/1 ML SDV ONE (13:24)
[2019-01-05] MEDS: OCTREOTIDE ACETATE INJ/PF 100 MCG/1 ML SDV IV SCH ×2 (14:31→21:26)
[2019-01-05] MEDS: DISOPYRAMIDE PHOSPHATE 150 MG CAPSULE PO SCH ×2 (14:31→21:24)
[2019-01-05] MEDS: MORPHINE SULFATE 10 MG/ML INJ IV PRN ×3 (16:37→23:43)
[2019-01-05] MEDS: ATORVASTATIN CALCIUM 20 MG TABLET PO SCH (17:08)
[2019-01-05] MEDS: TAMSULOSIN HCL 0.4 MG CAP.SR.24H PO SCH (17:08)
[2019-01-05] MEDS: LOSARTAN POTASSIUM 50 MG TABLET PO SCH (21:24)
[2019-01-05] MEDS: AMLODIPINE BESYLATE 5 MG TABLET PO SCH (21:25)
[2019-01-05] MEDS: FAMOTIDINE INJ/PF 20 MG/2 ML SDV IV SCH (21:26)
[2019-01-06] MEDS: MORPHINE SULFATE 10 MG/ML INJ IV PRN ×4 (04:16→20:53)
[2019-01-06 04:42] LABS: ABSOLUTE LYMPHOCYTES (AUTO) 1.2 10^3/uL (0.5-4.7); ABSOLUTE MONOCYTES (AUTO) 0.8 10^3/uL (0.1-1.4); ABSOLUTE NEUT (AUTO) 6.4 10^3/uL (1.7-8.2); BASOPHILS % (AUTO) 0.4 % (0-2); EOSINOPHILS % (AUTO) 0.4 % (0-6); HEMATOCRIT 29.8 % (37.9-51.0); HEMOGLOBIN 10.2 g/dL (13.5-17.0); MEAN CORPUSCULAR HEMOGLOBIN 33.9 pg (27.0-33.4); MEAN CORPUSCULAR HGB CONC 34.2 g/dL (32.0-36.0); MEAN CORPUSCULAR VOLUME 99 fl (80-97); MONOCYTES % (AUTO) 9.2 % (3-13); PLATELET COUNT 133 10^3/uL (150-450); TOTAL CELLS COUNTED % (AUTO) 100 %; WHITE BLOOD COUNT 8.5 10^3/uL (4.0-10.5)
[2019-01-06] MEDS: ACETAMINOPHEN INJ/PF 1000 MG/100 ML SDV IV SCH ×4 (05:45→23:40)
[2019-01-06] MEDS: OCTREOTIDE ACETATE INJ/PF 100 MCG/1 ML SDV IV SCH ×3 (05:45→21:11)
[2019-01-06] MEDS: DISOPYRAMIDE PHOSPHATE 150 MG CAPSULE PO SCH ×3 (05:46→21:17)
[2019-01-06] MEDS: ONDANSETRON HCL INJ/PF 4 MG/2 ML SDV IV PRN ×2 (05:54→21:25)
[2019-01-06] MEDS: POTASSI CL 20 MEQ/D5-1/2NS 1L 1,000 ML IV PRN ×2 (06:00→20:55)
[2019-01-06 07:11] LABS: ANION GAP 7 (5-19); BLOOD UREA NITROGEN 11 mg/dL (7-20); CALCIUM 8.8 mg/dL (8.4-10.2); CARBON DIOXIDE 23 mmol/L (22-30); CHLORIDE 107 mmol/L (98-107); GLUCOSE 140 mg/dL (75-110); POTASSIUM 4.1 mmol/L (3.6-5.0)
--- NOTE | 2019-01-06 08:38 | PDOC PROGRESS REPORT ---
Subjective Progress Note for:: 01/06/19 Subjective:: feels well up ambulating Reason For Visit: K86.89 OTHER SPECIFIED DISEASES OF PANCREAS Physical Exam Vital Signs: Temp Pulse Resp BP Pulse Ox 98.0 F 82 17 140/59 H 95 01/06/19 00:00 01/06/19 00:00 01/06/19 00:00 01/06/19 00:00 01/06/19 00:00 Intake & Output 01/05/19 01/06/19 01/07/19 06:59 06:59 06:59 Intake Total 0 6847 Output Total 4040 Balance 0 2807 Weight 91.8 kg General appearance: PRESENT: no acute distress Head exam: PRESENT: normocephalic Eye exam: PRESENT: EOMI Mouth exam: PRESENT: moist Neck exam: PRESENT: full ROM Respiratory exam: PRESENT: clear to auscultation angelo Cardiovascular exam: PRESENT: RRR Vascular exam: PRESENT: normal capillary refill GI/Abdominal exam: PRESENT: soft Rectal exam: PRESENT: deferred Extremities exam: PRESENT: full ROM Musculoskeletal exam: PRESENT: full ROM Neurological exam: PRESENT: alert, altered, awake, oriented to person Psychiatric exam: PRESENT: appropriate affect Skin exam: PRESENT: dry Results Laboratory Results: 01/06/19 04:31 01/06/19 06:17 01/06/19 01/06/19 01/06/19 04:31 04:31 06:17 WBC 8.5 RBC 3.00 L Hgb 10.2 L Hct 29.8 L MCV 99 H MCH 33.9 H MCHC 34.2 RDW 15.0 H Plt Count 133 L Seg Neutrophils % 76.0 Sodium Cancelled 137.0 Potassium Cancelled 4.1 Chloride Cancelled 107 Carbon Dioxide Cancelled 23 Anion Gap Cancelled 7 BUN Cancelled 11 Creatinine Cancelled 0.84 Est GFR ( Amer) Cancelled > 60 Est GFR (Non-Af Amer) Cancelled Glucose Cancelled 140 H Calcium Cancelled 8.8 Impressions: Chest X-Ray 12/29/18 09:48 IMPRESSION: NO SIGNIFICANT RADIOGRAPHIC FINDING IN THE CHEST. Assessment & Plan - Time Time Spent with patient: 25-34 minutes - Plan Summary Plan Summary: doing well pod 1 shannan clears was up ambulating hct stable drain min bloody will dc solorzano cont clears till passing flatus
[2019-01-06] MEDS: AMLODIPINE BESYLATE 5 MG TABLET PO SCH ×2 (09:06→21:17)
[2019-01-06] MEDS: FAMOTIDINE INJ/PF 20 MG/2 ML SDV IV SCH ×2 (09:06→21:11)
[2019-01-06] MEDS: FUROSEMIDE 40 MG TABLET PO SCH (09:06)
[2019-01-06] MEDS: ASPIRIN 81 MG TABLET, ENT COATED PO SCH (09:06)
[2019-01-06] MEDS: FEBUXOSTAT 40 MG TABLET PO SCH (09:06)
[2019-01-06] MEDS ORDERED: LOSARTAN POTASSIUM 50 MG TABLET PO SCH (10:00)
[2019-01-06] MEDS ORDERED: HYDROMORPHONE HCL INJ/PF 2 MG/ML AMPULE IV PRN (14:11)
[2019-01-06] MEDS ORDERED: HYDROMORPHONE HCL INJ/PF 2 MG/ML AMPULE ONE (14:13)
[2019-01-06] MEDS: ATORVASTATIN CALCIUM 20 MG TABLET PO SCH (17:32)
[2019-01-06] MEDS: TAMSULOSIN HCL 0.4 MG CAP.SR.24H PO SCH (17:32)
[2019-01-06] MEDS: METRONIDAZOLE 500 MG/NS RTU 500 MG/100 ML RTUPB IV SCH (20:54)
[2019-01-06] MEDS: LOSARTAN POTASSIUM 50 MG TABLET PO SCH (21:17)
[2019-01-06] MEDS: PIPERACILLIN SODIUM/TAZOBACTAM 3.375 GM in NORMAL SALINE 100 ML IV SCH (21:18)
[2019-01-07] MEDS: MORPHINE SULFATE 10 MG/ML INJ IV PRN ×3 (01:12→21:43)
[2019-01-07] MEDS: METRONIDAZOLE 500 MG/NS RTU 500 MG/100 ML RTUPB IV SCH ×3 (02:52→20:41)
[2019-01-07] MEDS: OCTREOTIDE ACETATE INJ/PF 100 MCG/1 ML SDV IV SCH ×3 (06:58→21:42)
[2019-01-07] MEDS: DISOPYRAMIDE PHOSPHATE 150 MG CAPSULE PO SCH ×3 (06:58→21:41)
[2019-01-07] MEDS: ACETAMINOPHEN INJ/PF 1000 MG/100 ML SDV IV SCH ×5 (06:58→23:12)
[2019-01-07] MEDS: PIPERACILLIN SODIUM/TAZOBACTAM 3.375 GM in NORMAL SALINE 100 ML IV SCH ×3 (06:59→21:52)
[2019-01-07 07:54] LABS: ABSOLUTE BASOPHILS # (AUTO) 0.1 10^3/uL (0.0-0.2); ABSOLUTE EOSINOPHILS # (AUTO) 0.1 10^3/uL (0.0-0.6); ABSOLUTE LYMPHOCYTES (AUTO) 1.1 10^3/uL (0.5-4.7); ABSOLUTE MONOCYTES (AUTO) 1.3 10^3/uL (0.1-1.4); ABSOLUTE NEUT (AUTO) 11.8 10^3/uL (1.7-8.2); BASOPHILS % (AUTO) 0.4 % (0-2); EOSINOPHILS % (AUTO) 0.6 % (0-6); HEMATOCRIT 33.7 % (37.9-51.0); HEMOGLOBIN 11.5 g/dL (13.5-17.0); LYMPHOCYTES % (AUTO) 7.4 % (13-45); MEAN CORPUSCULAR HEMOGLOBIN 33.7 pg (27.0-33.4); MEAN CORPUSCULAR HGB CONC 34.1 g/dL (32.0-36.0); MEAN CORPUSCULAR VOLUME 99 fl (80-97); MONOCYTES % (AUTO) 9.2 % (3-13); PLATELET COUNT 157 10^3/uL (150-450); RED BLOOD COUNT 3.42 10^6/uL (4.35-5.55); RED CELL DISTRIBUTION WIDTH 14.9 % (11.5-14.0); SEGMENTED NEUTROPHILS % (AUTO) 82.4 % (42-78); TOTAL CELLS COUNTED % (AUTO) 100 %; WHITE BLOOD COUNT 14.3 10^3/uL (4.0-10.5)
--- NOTE | 2019-01-07 07:59 | PDOC PROGRESS REPORT ---
Subjective Progress Note for:: 01/07/19 Subjective:: feels ok was up ambulating no flatus Reason For Visit: K86.89 OTHER SPECIFIED DISEASES OF PANCREAS Physical Exam Vital Signs: Temp Pulse Resp BP Pulse Ox 98.0 F 68 18 126/76 H 91 L 01/06/19 22:15 01/06/19 22:15 01/06/19 22:15 01/06/19 22:15 01/06/19 22:15 Intake & Output 01/06/19 01/07/19 01/08/19 06:59 06:59 06:59 Intake Total 6847 3480 Output Total 4040 600 Balance 2807 2880 Weight 91.8 kg 94.2 kg General appearance: PRESENT: no acute distress Head exam: PRESENT: normocephalic Eye exam: PRESENT: EOMI Ear exam: PRESENT: normal external ear exam Mouth exam: PRESENT: moist Neck exam: PRESENT: full ROM Cardiovascular exam: PRESENT: RRR Pulses: PRESENT: normal radial pulses, normal femoral pulses Vascular exam: PRESENT: normal capillary refill GI/Abdominal exam: PRESENT: hypoactive bowel sounds, soft Extremities exam: PRESENT: full ROM Musculoskeletal exam: PRESENT: full ROM Neurological exam: PRESENT: alert, altered, awake, oriented to person, oriented to place Skin exam: PRESENT: dry Results Impressions: Chest X-Ray 12/29/18 09:48 IMPRESSION: NO SIGNIFICANT RADIOGRAPHIC FINDING IN THE CHEST. Assessment & Plan - Time Time Spent with patient: 25-34 minutes - Plan Summary Plan Summary: s/p distal pancreatectomy/splenectomy doing ok had low grade temp last pm with chill restarted on abx this am feels ok no fever vss no flatus plan cont full liqluids out of bed increase activity check labs.
[2019-01-07 08:08] LABS: ANION GAP 9 (5-19); BLOOD UREA NITROGEN 7 mg/dL (7-20); CALCIUM 8.8 mg/dL (8.4-10.2); CARBON DIOXIDE 24 mmol/L (22-30); CHLORIDE 103 mmol/L (98-107); GLUCOSE 120 mg/dL (75-110); POTASSIUM 3.8 mmol/L (3.6-5.0)
[2019-01-07] MEDS: ASPIRIN 81 MG TABLET, ENT COATED PO SCH (11:37)
[2019-01-07] MEDS: FUROSEMIDE 40 MG TABLET PO SCH (11:37)
[2019-01-07] MEDS: AMLODIPINE BESYLATE 5 MG TABLET PO SCH ×2 (11:37→21:41)
[2019-01-07] MEDS: FEBUXOSTAT 40 MG TABLET PO SCH (11:37)
[2019-01-07] MEDS: ONDANSETRON HCL INJ/PF 4 MG/2 ML SDV IV PRN ×3 (11:39→21:40)
[2019-01-07] MEDS: FAMOTIDINE INJ/PF 20 MG/2 ML SDV IV SCH ×2 (11:39→21:43)
[2019-01-07] MEDS: POTASSI CL 20 MEQ/D5-1/2NS 1L 1,000 ML IV PRN (15:41)
[2019-01-07] MEDS: TAMSULOSIN HCL 0.4 MG CAP.SR.24H PO SCH (18:24)
[2019-01-07] MEDS: ATORVASTATIN CALCIUM 20 MG TABLET PO SCH (18:24)
[2019-01-07] MEDS: LOSARTAN POTASSIUM 50 MG TABLET PO SCH (21:41)
[2019-01-08] MEDS: METRONIDAZOLE 500 MG/NS RTU 500 MG/100 ML RTUPB IV SCH ×3 (01:45→17:23)
[2019-01-08] MEDS: MORPHINE SULFATE 10 MG/ML INJ IV PRN (01:50)
[2019-01-08] MEDS: DISOPYRAMIDE PHOSPHATE 150 MG CAPSULE PO SCH ×3 (05:26→22:02)
[2019-01-08] MEDS: OCTREOTIDE ACETATE INJ/PF 100 MCG/1 ML SDV IV SCH ×3 (05:27→22:02)
[2019-01-08] MEDS: PIPERACILLIN SODIUM/TAZOBACTAM 3.375 GM in NORMAL SALINE 100 ML IV SCH ×3 (05:27→22:02)
[2019-01-08 06:12] LABS: ABSOLUTE BASOPHILS # (AUTO) 0.1 10^3/uL (0.0-0.2); ABSOLUTE EOSINOPHILS # (AUTO) 0.3 10^3/uL (0.0-0.6); ABSOLUTE LYMPHOCYTES (AUTO) 0.9 10^3/uL (0.5-4.7); ABSOLUTE MONOCYTES (AUTO) 1.2 10^3/uL (0.1-1.4); ABSOLUTE NEUT (AUTO) 11.2 10^3/uL (1.7-8.2); BASOPHILS % (AUTO) 0.4 % (0-2); EOSINOPHILS % (AUTO) 2.5 % (0-6); HEMATOCRIT 32.6 % (37.9-51.0); HEMOGLOBIN 11.4 g/dL (13.5-17.0); LYMPHOCYTES % (AUTO) 6.9 % (13-45); MEAN CORPUSCULAR HEMOGLOBIN 34.1 pg (27.0-33.4); MEAN CORPUSCULAR HGB CONC 34.8 g/dL (32.0-36.0); MEAN CORPUSCULAR VOLUME 98 fl (80-97); MONOCYTES % (AUTO) 8.5 % (3-13); PLATELET COUNT 163 10^3/uL (150-450); RED BLOOD COUNT 3.33 10^6/uL (4.35-5.55); RED CELL DISTRIBUTION WIDTH 15.1 % (11.5-14.0); SEGMENTED NEUTROPHILS % (AUTO) 81.7 % (42-78); TOTAL CELLS COUNTED % (AUTO) 100 %; WHITE BLOOD COUNT 13.8 10^3/uL (4.0-10.5)
[2019-01-08 06:27] LABS: ANION GAP 8 (5-19); BLOOD UREA NITROGEN 8 mg/dL (7-20); CALCIUM 8.7 mg/dL (8.4-10.2); CARBON DIOXIDE 25 mmol/L (22-30); CHLORIDE 102 mmol/L (98-107); GLUCOSE 94 mg/dL (75-110); POTASSIUM 3.6 mmol/L (3.6-5.0)
[2019-01-08] MEDS: ONDANSETRON HCL INJ/PF 4 MG/2 ML SDV IV PRN ×2 (06:43→13:22)
[2019-01-08] MEDS: ACETAMINOPHEN INJ/PF 1000 MG/100 ML SDV IV SCH (07:10)
--- NOTE | 2019-01-08 07:53 | PDOC PROGRESS REPORT ---
Subjective Progress Note for:: 01/08/19 Subjective:: feels a little nausea, otherwise no complaints, slept well Reason For Visit: K86.89 OTHER SPECIFIED DISEASES OF PANCREAS pod 3 distal pancreatectomy/splenectomy Physical Exam Vital Signs: Temp Pulse Resp BP Pulse Ox 98.6 F 57 L 17 131/72 H 93 01/08/19 00:00 01/08/19 00:00 01/08/19 00:00 01/08/19 00:00 01/08/19 00:00 Intake & Output 01/07/19 01/08/19 01/09/19 06:59 06:59 06:59 Intake Total 3480 990 Output Total 600 1925 Balance 2880 -935 Weight 94.2 kg 94.4 kg General appearance: PRESENT: no acute distress Head exam: PRESENT: normocephalic Eye exam: PRESENT: EOMI Ear exam: PRESENT: normal external ear exam Mouth exam: PRESENT: moist Neck exam: PRESENT: full ROM Respiratory exam: PRESENT: clear to auscultation angelo Cardiovascular exam: PRESENT: RRR Pulses: PRESENT: normal radial pulses, normal femoral pulses Vascular exam: PRESENT: normal capillary refill GI/Abdominal exam: PRESENT: soft Rectal exam: PRESENT: deferred Extremities exam: PRESENT: full ROM Musculoskeletal exam: PRESENT: full ROM Neurological exam: PRESENT: alert, awake, oriented to person, oriented to place Psychiatric exam: PRESENT: appropriate affect Skin exam: PRESENT: dry Results Laboratory Results: 01/08/19 05:59 01/08/19 05:59 01/07/19 01/07/19 01/08/19 07:38 07:38 05:59 WBC 14.3 H 13.8 H RBC 3.42 L 3.33 L Hgb 11.5 L 11.4 L Hct 33.7 L 32.6 L MCV 99 H 98 H MCH 33.7 H 34.1 H MCHC 34.1 34.8 RDW 14.9 H 15.1 H Plt Count 157 163 Seg Neutrophils % 82.4 H 81.7 H Sodium 136.2 L Potassium 3.8 Chloride 103 Carbon Dioxide 24 Anion Gap 9 BUN 7 Creatinine 0.93 Est GFR ( Amer) > 60 Glucose 120 H Calcium 8.8 01/08/19 05:59 WBC RBC Hgb Hct MCV MCH MCHC RDW Plt Count Seg Neutrophils % Sodium 135.2 L Potassium 3.6 Chloride 102 Carbon Dioxide 25 Anion Gap 8 BUN 8 Creatinine 0.94 Est GFR ( Amer) > 60 Glucose 94 Calcium 8.7 Impressions: Chest X-Ray 12/29/18 09:48 IMPRESSION: NO SIGNIFICANT RADIOGRAPHIC FINDING IN THE CHEST. Assessment & Plan - Time Time Spent with patient: 35 or more minutes - Plan Summary Plan Summary: s/p distal pancreatectomy/splenectomy for mass in distal pancrease doing ok p0d 3 still waiting on return of bowel function will add dulcolax today ok to shower.
[2019-01-08] MEDS ORDERED: BISACODYL 10 MG SUPP.RECT PR ONE (08:30)
[2019-01-08] MEDS: POTASSI CL 20 MEQ/D5-1/2NS 1L 1,000 ML IV PRN (09:42)
[2019-01-08] MEDS: FEBUXOSTAT 40 MG TABLET PO SCH (09:43)
[2019-01-08] MEDS: ASPIRIN 81 MG TABLET, ENT COATED PO SCH (09:43)
[2019-01-08] MEDS: FAMOTIDINE INJ/PF 20 MG/2 ML SDV IV SCH ×2 (09:43→22:02)
[2019-01-08] MEDS: FUROSEMIDE 40 MG TABLET PO SCH (09:43)
[2019-01-08] MEDS: AMLODIPINE BESYLATE 5 MG TABLET PO SCH ×2 (09:44→22:02)
[2019-01-08] MEDS: METOCLOPRAMIDE HCL INJ/PF 10 MG/2 ML SDV IV SCH ×2 (16:15→23:36)
[2019-01-08] MEDS: ATORVASTATIN CALCIUM 20 MG TABLET PO SCH (17:23)
[2019-01-08] MEDS: TAMSULOSIN HCL 0.4 MG CAP.SR.24H PO SCH (17:23)
[2019-01-08] MEDS: LOSARTAN POTASSIUM 50 MG TABLET PO SCH (22:02)
[2019-01-09] MEDS: POTASSI CL 20 MEQ/D5-1/2NS 1L 1,000 ML IV PRN (00:36)
[2019-01-09] MEDS: METRONIDAZOLE 500 MG/NS RTU 500 MG/100 ML RTUPB IV SCH (01:47)
[2019-01-09] MEDS: METOCLOPRAMIDE HCL INJ/PF 10 MG/2 ML SDV IV SCH (05:38)
[2019-01-09] MEDS: OCTREOTIDE ACETATE INJ/PF 100 MCG/1 ML SDV IV SCH (05:38)
[2019-01-09] MEDS: DISOPYRAMIDE PHOSPHATE 150 MG CAPSULE PO SCH (05:38)
[2019-01-09] MEDS: PIPERACILLIN SODIUM/TAZOBACTAM 3.375 GM in NORMAL SALINE 100 ML IV SCH (05:38)
--- NOTE | 2019-01-09 07:29 | PDOC DISCHARGE SUMMARY ---
General - Admit/Disc Date/PCP Admission Date/Primary Care Provider: 01/05/19 05:18 SALINAS PACHECO NP Discharge Date: 01/09/19 - Discharge Diagnosis Final Diagnosis: pancreatic mass - Assessment Summary: pt admitted for elective resection of a distal pancreatic mass procedure done on day of admission shannan procedure well post op has had a routein benign post op course started on po clear liquids on day of surgery, shannan well began on full liqluids on pod 2 which he tolerated began having have bm's on pod 3 today shannan full lilquids and ready for dc home will f/u with me in 1 wk has clar[address] in place which will remain for now. percocet and zofran scripts given. ok to shower, and no lifting more than [address] on 01/11 if not taking pain meds. - Additional Information Resuscitation Status: Full Code Discharge Activity: Activity As Tolerated, No Lifting Over 10 Pounds - pt needs a f/u with me in a week. Referrals: [facility] [Provider Group] - 01/18/19 9:15 am () Home Medications: Amlodipine Besylate [Norvasc 5 mg Tablet] 5 mg PO Q12 11/23/18 Atorvastatin Calcium [Lipitor 20 mg Tablet] 20 mg PO QPM 11/23/18 Disopyramide Phosphate [Norpace 150 mg Capsule] 300 mg PO Q8 11/23/18 Febuxostat [Uloric 40 mg Tablet] 40 mg PO DAILY 11/23/18 Furosemide [Lasix 40 mg Tablet] 40 mg PO DAILY 11/23/18 Losartan Potassium [Cozaar 100 mg Tablet] 100 mg PO DAILY 11/23/18 Tamsulosin HCl [Flomax 0.4 mg Cap.sr] 0.4 mg PO QPM 11/23/18 Aspirin [Ecotrin 81 mg EC Tablet] 81 mg PO DAILY 01/05/19 History of Present Illiness History of Present Illness: KAUSHIK ACE is a 68 year old male Physical Exam Vital Signs: Temp Pulse Resp BP Pulse Ox 98.4 F 65 17 118/68 94 01/08/19 16:40 01/08/19 16:40 01/08/19 16:40 01/08/19 16:40 01/08/19 16:40 Intake & Output 11/12/1701/09/19 01/10/19 06:59 06:59 06:59 Intake Total 1989 2174 Output Total 9612 3297 Balance 65 -85 Weight 94.4 kg Results Laboratory Results: WBC 13.8 10^3/uL (4.0-10.5) H 01/08/19 05:59 RBC 3.33 10^6/uL (4.35-5.55) L 01/08/19 05:59 Hgb 11.4 g/dL (13.5-17.0) L 01/08/19 05:59 Hct 32.6 % (37.9-51.0) L 01/08/19 05:59 MCV 98 fl (80-97) H 01/08/19 05:59 MCH 34.1 pg (27.0-33.4) H 01/08/19 05:59 MCHC 34.8 g/dL (32.0-36.0) 01/08/19 05:59 RDW 15.1 % (11.5-14.0) H 01/08/19 05:59 Plt Count 163 10^3/uL (150-450) 01/08/19 05:59 Lymph % (Auto) 6.9 % (13-45) L 01/08/19 05:59 Pike % (Auto) 8.5 % (3-13) 01/08/19 05:59 Eos % (Auto) 2.5 % (0-6) 01/08/19 05:59 Baso % (Auto) 0.4 % (0-2) 01/08/19 05:59 Absolute Neuts (auto) 11.2 10^3/uL (1.7-8.2) H 01/08/19 05:59 Absolute Lymphs (auto) 0.9 10^3/uL (0.5-4.7) 01/08/19 05:59 Absolute Monos (auto) 1.2 10^3/uL (0.1-1.4) 01/08/19 05:59 Absolute Eos (auto) 0.3 10^3/uL (0.0-0.6) 01/08/19 05:59 Absolute Basos (auto) 0.1 10^3/uL (0.0-0.2) 01/08/19 05:59 Seg Neutrophils % 81.7 % (42-78) H 01/08/19 05:59 Sodium 135.2 mmol/L (137-145) L 01/08/19 05:59 Potassium 3.6 mmol/L (3.6-5.0) 01/08/19 05:59 Chloride 102 mmol/L (98-107) 01/08/19 05:59 Carbon Dioxide 25 mmol/L (22-30) 01/08/19 05:59 Anion Gap 8 (5-19) 01/08/19 05:59 BUN 8 mg/dL (7-20) 01/08/19 05:59 Creatinine 0.94 mg/dL (0.52-1.25) 01/08/19 05:59 Est GFR ( Amer) > 60 (>60) 01/08/19 05:59 Est GFR (Non-Af Amer) Cancelled 01/06/19 04:31 Est GFR (MDRD) Non-Af > 60 (>60) 01/08/19 05:59 Glucose 94 mg/dL (75-110) 01/08/19 05:59 Calcium 8.7 mg/dL (8.4-10.2) 01/08/19 05:59 EGFR Cancelled 01/06/19 04:31 Blood Type O POSITIVE 01/02/19 10:24 Antibody Screen NEGATIVE 01/02/19 10:24 Impressions: Chest X-Ray 12/29/18 09:48 IMPRESSION: NO SIGNIFICANT RADIOGRAPHIC FINDING IN THE CHEST.
[2019-01-09 07:39] VITALS: BP 131/72
== END 2019-01-09 10:01 | disposition home or self-care (01) | DRG 407 ==
LOC: INOR 05:18 → 5 12:40
PROVIDERS: ADMIT Surgery; ATTEND Surgery
PROC: 07TP4ZZ Resection of Spleen, Percutaneous Endoscopic Approach (ICD-10-PCS; 2019-01-05)
PROC: 0FBG4ZZ Excision of Pancreas, Percutaneous Endoscopic Approach (ICD-10-PCS; principal; 2019-01-05 07:30)
DX: K86.89 Other specified diseases of pancreas (principal); Z90.49 Acquired absence of other specified parts of digestive tract; Z88.8 Allergy status to other drugs, medicaments and biological substances; I48.91 Unspecified atrial fibrillation; M19.90 Unspecified osteoarthritis, unspecified site; N18.9 Chronic kidney disease, unspecified; Z79.82 Long term (current) use of aspirin
CPT/HCPCS: 36415; 71046; 790; 80048; 84132; 85025; 86850; 86900; 86901; 87040; 88309; 88331; 88332; 88341; 88342; 94799; C9250; C9290; J0131; J0330; J0690; J1100; J1170; J2250; J2270; J2354; J2370; J2405; J2543; J2704; J2710; J2765; J3010; J3480; J3490; J7050; J7060; S0028

== ENCOUNTER → 2019-01-30 | Outpatient (CLI) | payer MEDICARE, OTHER | LOC: OD 07:03 | PROVIDERS: ATTEND Surgery | DX: K85.90 Acute pancreatitis without necrosis or infection, unspecified (principal) | CPT/HCPCS: 36415; 82947 ==

== ENCOUNTER 2019-04-13 09:48 | Day surgery (SDC) | payer MEDICARE, OTHER ==
[2019-04-07 09:31] LABS: ABSOLUTE BASOPHILS # (AUTO) 0.1 10^3/uL (0.0-0.2); ABSOLUTE EOSINOPHILS # (AUTO) 0.2 10^3/uL (0.0-0.6); ABSOLUTE LYMPHOCYTES (AUTO) 2.1 10^3/uL (0.5-4.7); ABSOLUTE MONOCYTES (AUTO) 0.8 10^3/uL (0.1-1.4); ABSOLUTE NEUT (AUTO) 4.7 10^3/uL (1.7-8.2); EOSINOPHILS % (AUTO) 2.1 % (0-6); HEMATOCRIT 41.6 % (37.9-51.0); HEMOGLOBIN 14.4 g/dL (13.5-17.0); LYMPHOCYTES % (AUTO) 26.2 % (13-45); MEAN CORPUSCULAR HEMOGLOBIN 33.3 pg (27.0-33.4); MEAN CORPUSCULAR HGB CONC 34.7 g/dL (32.0-36.0); MEAN CORPUSCULAR VOLUME 96 fl (80-97); MONOCYTES % (AUTO) 10.7 % (3-13); PLATELET COUNT 274 10^3/uL (150-450); RED BLOOD COUNT 4.34 10^6/uL (4.35-5.55); RED CELL DISTRIBUTION WIDTH 17.1 % (11.5-14.0); TOTAL CELLS COUNTED % (AUTO) 100 %; WHITE BLOOD COUNT 7.9 10^3/uL (4.0-10.5)
[2019-04-07 09:57] LABS: ANION GAP 10 (5-19); BLOOD UREA NITROGEN 24 mg/dL (7-20); CALCIUM 9.6 mg/dL (8.4-10.2); CARBON DIOXIDE 28 mmol/L (22-30); CHLORIDE 102 mmol/L (98-107); GLUCOSE 97 mg/dL (75-110)
[~2019-04-13 09:48] MED LIST changes: -CEFAZOLIN SODIUM 1 GM in DEXTROSE 5%-WATER 50 ML IV PRN; +CEFAZOLIN SODIUM 2 GM in DEXTROSE 5%-WATER 100 ML IV PRN; +FENTANYL CITRATE INJ/PF 100 MCG/2 ML AMPUL ONE; +LACTATED RINGERS 1000 ML IV PRN; -METRONIDAZOLE 500 MG/NS RTU 500 MG/100 ML RTUPB IV ONE; -METRONIDAZOLE 500 MG/NS RTU 500 MG/100 ML RTUPB IV PRN; +MIDAZOLAM 2 MG/2 ML INJ ONE; -NORMAL SALINE 1000 ML (RENAL PATIENTS) IV PRN; +PROPOFOL INJ 200 MG/20 ML VIAL IV ONE
[2019-04-13] MEDS ORDERED: SUCCINYLCHOLINE CHLORIDE INJ 200 MG/10 ML VIAL ONE (09:50)
[2019-04-13] MEDS ORDERED: ROCURONIUM BROMIDE INJ 50 MG/5 ML VIAL IV ONE (09:50)
[2019-04-13] MEDS ORDERED: BUPIVACAINE HCL 0.5%-EPI 1:200000 INJ/PF 30 ML VIAL ONE (10:55)
[2019-04-13] MEDS ORDERED: BUPIVACAINE INJ/PF LIPOSOME/PF 266 MG/20 ML SDV ONE (11:40)
[2019-04-13] MEDS ORDERED: BUPIVACAINE INJ/PF LIPOSOME/PF 266 MG/20 ML SDV INJ ONE (11:44)
[2019-04-13] MEDS ORDERED: FENTANYL CITRATE INJ/PF 100 MCG/2 ML AMPUL ONE (11:49)
[2019-04-13] MEDS ORDERED: FENTANYL CITRATE INJ/PF 100 MCG/2 ML AMPUL IV PRN ×3 (11:51)
[2019-04-13] MEDS ORDERED: MORPHINE SULFATE 10 MG/ML INJ IV PRN (11:51)
[2019-04-13] MEDS ORDERED: OXYCODONE-ACETAMINOPHEN 5-325 MG TABLET PO PRN ×2 (11:51)
[2019-04-13] MEDS ORDERED: ONDANSETRON HCL INJ/PF 4 MG/2 ML SDV IV PRN (11:51)
[2019-04-13] MEDS ORDERED: DIPHENHYDRAMINE HCL 50 MG/ML VIAL IV PRN (11:51)
[2019-04-13] MEDS ORDERED: MEPERIDINE HCL/PF INJ 25 MG/1 ML DISP.SYRIN IV PRN (11:51)
[2019-04-13] MEDS ORDERED: EPHEDRINE SULFATE INJ 50 MG/1 ML AMPULE ONE (11:52)
--- NOTE | 2019-04-13 12:24 | Operative Report ---
Nonrecallable Operative Report DATE OF SURGERY: 04/13/19 PREOPERATIVE DIAGNOSIS: Incisional hernia incisional hernia POSTOPERATIVE DIAGNOSIS: Incisional hernia OPERATION: Repair of incisional hernia with mesh SURGEON: HARMEET AHMADI ANESTHESIA: GA TISSUE REMOVED OR ALTERED: None COMPLICATIONS: None ESTIMATED BLOOD LOSS: 10 cc INTRAOPERATIVE FINDINGS: See note PROCEDURE: Patient was brought to the operating awake alert stable condition placed after table supine position induced under general anesthesia and intubated. After the abdomen was prepped and draped in usual sterile fashion. After appropriate timeout and site verification the procedure commenced. The patient has a supraumbilical hernia defect about 3 to 4 cm long just above the umbilicus a longitudinal incision was made approximately 5 cm long dissection was carried down through subtenons tissue with Bovie cautery until we reached the hernia sac the hernia sac was grasped with an Allis clamp placed on traction we dissected around the hernia sac till we identified normal fascia circumferentially we then raised lateral skin flaps with the Bovie cautery to back 3 cm on each side of the fascia to confirm good fascia. The hernia sac was then excised with Bovie cautery. We then used a piece of ventral Stephen mesh placed into the abdominal cavity and fixed it circumferentially around the fascial defect underneath the fascia with interrupted placed #2 Polysorb sutures. We then closed the fascia anteriorly over that mesh in a transverse fashion with interrupted placed #2 placed 0 Vicryl sutures. This was done in a Smead Daigle fashion. Once the fascia was closed the subcutaneous tissue was reapproximated interrupt ed 3-0 Vicryl sutures skin was closed with intracuticular 3-0 Maxon suture. Steri-Strips completed the procedure. Estimated blood loss was less than 10 cc. Sponge needle counts were correct x2 the patient was awakened in the operating room extubated transferred recovery in stable condition no complications
--- NOTE | 2019-04-13 12:28 | Discharge Summary ---
Discharge Summary (SDC) - Discharge Final Diagnosis: Incisional hernia Date of Surgery: 04/13/19 Discharge Date: 04/13/19 Condition: Good Forms: ASU Anesthesia D/C Instruction, Discharge POC-Surgical Service Treatment or Instructions: NO LIFTING OVER 10 POUNDS, NO BENDING, NO PUSHING, NO PULLING, UNTIL CLEARED AT FOLLOW UP APPOINTMENT, OTHERWISE, ACTIVITY TOLERATED TAKE MEDICATIONS DIRECTED NO TUB BATHS AND NO SWIMMING FOR 2 WEEKS MAY SHOWER TOMORROW DIET TOLERATED FOLLOW UP WITH YOUR MD DIRECTED LOOK FOR SIGNS OF INFECTIONS, IF SIGNS OCCUR PLEASE GO TO THE EMERGENCY ROOM FOR EVALUATION Referrals: HARMEET AHMADI MD [ACTIVE STAFF] - 04/21/19 10:15 am Discharge Activity: Activity As Tolerated, No Lifting Over 10 Pounds Report the Following to Your Physician Immediately: Unusual Bleeding - Patient is to follow-up with me in 7 days after discharge
[2019-04-13] MEDS ORDERED: OXYCODONE-ACETAMINOPHEN 5-325 MG TABLET ONE (12:54)
[2019-04-13 14:13] VITALS: BP 135/64
[2019-04-13] MEDS ORDERED: ONDANSETRON HCL INJ/PF 4 MG/2 ML SDV ONE (14:39)
== END 2019-04-13 13:55 | disposition home or self-care (01) ==
LOC: OROUT 09:48
PROVIDERS: ATTEND Surgery
DX: K43.2 Incisional hernia without obstruction or gangrene (principal); I48.91 Unspecified atrial fibrillation; Z79.899 Other long term (current) drug therapy; Z88.5 Allergy status to narcotic agent; Z79.82 Long term (current) use of aspirin; I10 Essential (primary) hypertension; R01.1 Cardiac murmur, unspecified
CPT/HCPCS: 36415 ×2; 84132; 85025; 80048; 00752; 49560; 49568; C1781; J2250; J3490 ×3; J0690; J3010; A9270; J0330; J2405; J7060; J2704; C9290; 752